=== PATIENT | male | born 1955 | race Two or more races ===

== ENCOUNTER 2017-06-22 09:21 | Outpatient (CLI) | payer MEDICAID ==
[~2017-06-22 09:21] MED LIST: DIAZ5TAB4 PO; ESCI20TA38 PO; FURO40TA4 PO; GABA-532 PO; INSU100V9 SQ; LINA5TAB4 PO; LISI-604 PO; METF500T4 PO; METO-539 PO; NITR0.4T48 PO; OMEP-50 PO; OXYB5TAB11 PO; OXYC10TA57 PO; POTA8CAP9 PO; ROPI4TAB4 PO; SIMV20TA5 PO; TAMS0.4C32 PO; TRAZ-143 PO; ZIPR40CA2 PO
[2017-06-22] MEDS ORDERED: mupirocin 2% ointment 22GM ONE (10:42)
== END 2017-06-22 10:59 | disposition home or self-care (01) ==
LOC: WOUND CARE 09:21 → EDSTATUS 10:00 → WOUND CARE 10:59
PROVIDERS: ATTEND Surgery
DX: T81.89XD Other complications of procedures, not elsewhere classified, subsequent encounter (principal); E11.621 Type 2 diabetes mellitus with foot ulcer; L97.521 Non-pressure chronic ulcer of other part of left foot limited to breakdown of skin; L97.421 Non-pressure chronic ulcer of left heel and midfoot limited to breakdown of skin; E11.52 Type 2 diabetes mellitus with diabetic peripheral angiopathy with gangrene; I70.244 Atherosclerosis of native arteries of left leg with ulceration of heel and midfoot; I70.245 Atherosclerosis of native arteries of left leg with ulceration of other part of foot; I42.9 Cardiomyopathy, unspecified; E11.22 Type 2 diabetes mellitus with diabetic chronic kidney disease; I13.0 Hypertensive heart and chronic kidney disease with heart failure and stage 1 through stage 4 chronic kidney disease, or unspecified chronic kidney disease; I50.33 Acute on chronic diastolic (congestive) heart failure; N18.3 Chronic kidney disease, stage 3 (moderate); E11.40 Type 2 diabetes mellitus with diabetic neuropathy, unspecified; I25.10 Atherosclerotic heart disease of native coronary artery without angina pectoris; K21.9 Gastro-esophageal reflux disease without esophagitis; F32.9 Major depressive disorder, single episode, unspecified; F17.210 Nicotine dependence, cigarettes, uncomplicated; Z79.4 Long term (current) use of insulin; Z79.899 Other long term (current) drug therapy; Z90.49 Acquired absence of other specified parts of digestive tract; Z85.038 Personal history of other malignant neoplasm of large intestine; Z85.048 Personal history of other malignant neoplasm of rectum, rectosigmoid junction, and anus; Y83.8 Other surgical procedures as the cause of abnormal reaction of the patient, or of later complication, without mention of misadventure at the time of the procedure
CPT/HCPCS: 36416; 82948; 99211; A4414; A6209; A6223

== ENCOUNTER 2017-06-27 09:30 | Day surgery (SDC) | payer MEDICAID ==
[2017-06-27] MEDS ORDERED: LIDOcaine 2% 5ml jelly ONE (10:48)
== END 2017-06-27 11:57 | disposition home or self-care (01) ==
LOC: WOUND CARE 09:30
PROVIDERS: ATTEND Surgery
DX: T87.89 Other complications of amputation stump (principal); E11.621 Type 2 diabetes mellitus with foot ulcer; L97.521 Non-pressure chronic ulcer of other part of left foot limited to breakdown of skin; E11.22 Type 2 diabetes mellitus with diabetic chronic kidney disease; I13.0 Hypertensive heart and chronic kidney disease with heart failure and stage 1 through stage 4 chronic kidney disease, or unspecified chronic kidney disease; I50.33 Acute on chronic diastolic (congestive) heart failure; N18.3 Chronic kidney disease, stage 3 (moderate); I25.10 Atherosclerotic heart disease of native coronary artery without angina pectoris; I70.244 Atherosclerosis of native arteries of left leg with ulceration of heel and midfoot; I70.245 Atherosclerosis of native arteries of left leg with ulceration of other part of foot; K21.9 Gastro-esophageal reflux disease without esophagitis; E11.40 Type 2 diabetes mellitus with diabetic neuropathy, unspecified; E11.52 Type 2 diabetes mellitus with diabetic peripheral angiopathy with gangrene; F32.9 Major depressive disorder, single episode, unspecified; F17.210 Nicotine dependence, cigarettes, uncomplicated; Z90.49 Acquired absence of other specified parts of digestive tract; Z79.4 Long term (current) use of insulin; Z79.899 Other long term (current) drug therapy; Z85.038 Personal history of other malignant neoplasm of large intestine; Z85.048 Personal history of other malignant neoplasm of rectum, rectosigmoid junction, and anus; Y83.5 Amputation of limb(s) as the cause of abnormal reaction of the patient, or of later complication, without mention of misadventure at the time of the procedure
CPT/HCPCS: 11043; 36416; 82948; 87070; 87075; 87077; 87102; 87186; A6021; A6206; A6209; A6223; A6446

== ENCOUNTER 2017-07-04 11:38 | Inpatient (IN) | payer MEDICAID ==
[~2017-07-04] VITALS: Ht 180.3 cm; Wt 82.7 kg
[~2017-07-04 11:38] MED LIST changes: +LIDOcaine 2% 5ml jelly ONE
[2017-07-04] MEDS ORDERED: glucagon, human recombinant 1mg kit SUBCUT PRN (12:55)
[2017-07-04] MEDS ORDERED: dextrose 50%-water 50ml dispensing syringe IV PRN ×2 (12:55)
[2017-07-04] MEDS ORDERED: magnesium hydroxide 30ml (MOM) UD suspension PO PRN (12:55)
[2017-07-04] MEDS ORDERED: mag hydrox/Alum hydrox/simeth 30ml oral suspension PO PRN (12:55)
[2017-07-04] MEDS ORDERED: magnesium 4gm in 100ml NS 100 ML IV PRN (12:55)
[2017-07-04] MEDS ORDERED: magnesium Cl slow-release 64mg tablet PO PRN (12:55)
[2017-07-04] MEDS ORDERED: potassium Cl 40MEQ/NS 500ml 500 ML IV PRN ×2 (12:55)
[2017-07-04] MEDS ORDERED: acetaminophen 325mg tablet PO PRN ×2 (12:55)
[2017-07-04] MEDS ORDERED: HYDROcodone/acetaminophen 5mg/325mg tablet PO PRN (12:55)
[2017-07-04] MEDS ORDERED: magnesium 2GM in 50ml NS 50 ML IV PRN (12:55)
[2017-07-04] MEDS ORDERED: dextrose ORAL solution 15 GM/59 ML bottle PO PRN ×2 (12:55)
[2017-07-04] MEDS ORDERED: potassium Cl 20 mEq SR tablet PO PRN ×2 (12:55)
[2017-07-04] MEDS ORDERED: ondansetron/PF 4mg/2ml inj IV PRN (12:55)
[2017-07-04] MEDS ORDERED: MESSAGE TO PHARMACY PO ONE (12:55)
[2017-07-04 13:00] VITALS: BP 128/65
[2017-07-04 13:46] LABS: BASOPHILS % (AUTO) 0 % (0-1); EOSINOPHILS # (AUTO) 0.1 X10'3 (0-0.9); EOSINOPHILS % (AUTO) 0.9 % (0-6); HEMATOCRIT 38.1 % (42.0-52.0); HEMOGLOBIN 12.4 g/dl (14.0-17.9); LYMPHOCYTES # (AUTO) 0.9 X10'3 (1.1-4.8); LYMPHOCYTES % (AUTO) 8.1 % (21-51); MEAN CORPUSCULAR HEMOGLOBIN 27.9 PG (27.0-31.0); MEAN CORPUSCULAR HGB CONC 32.6 % (33.0-36.5); MEAN CORPUSCULAR VOLUME 85.8 FL (78-98); MEAN PLATELET VOLUME 7.2 FL (7.4-10.4); MONOCYTES # (AUTO) 0.5 X10'3 (0-0.9); MONOCYTES % (AUTO) 4.9 % (2-12); NEUTROPHILS # (AUTO) 9.7 X10'3 (1.8-7.7); NEUTROPHILS % (AUTO) 86.1 % (42-75); PLATELET COUNT 394 X10'3 (140-440); RED BLOOD COUNT 4.44 X10'6 (4.70-6.10); RED CELL DISTRIBUTION WIDTH 17.1 % (11.5-14.5); WHITE BLOOD COUNT 11.2 X10'3 (4.5-11.0)
[2017-07-04 13:54] LABS: INR 1.1 INR; PARTIAL THROMBOPLASTIN TIME 25 SECONDS (22-32); PROTHROMBIN TIME 10.9 SECONDS (9.0-12.0)
[2017-07-04 13:58] LABS: ALANINE AMINOTRANSFERASE 21 U/L (12-78); ALBUMIN 2.2 G/DL (3.4-5.0); ALBUMIN/GLOBULIN RATIO 0.4 (1.1-1.5); ALKALINE PHOSPHATASE 122 IU/L (46-116); ANION GAP 6 (8-16); ASPARTATE AMINO TRANSFERASE 16 U/L (10-37); BILIRUBIN,TOTAL 0.4 MG/DL (0.1-1.0); BLOOD UREA NITROGEN 25 MG/DL (7-18); CHLORIDE 100 MMOL/L (99-107); CREATININE 1.25 MG/DL (0.60-1.10); GLUCOSE 210 MG/DL (70-104); MAGNESIUM 1.8 MG/DL (1.5-2.4); PHOSPHORUS 4.1 MG/DL (2.3-4.5); POTASSIUM 4.2 MMOL/L (3.5-5.1); SODIUM 134 MMOL/L (135-145); TOTAL CARBON DIOXIDE 27.7 MMOL/L (24-32); TOTAL PROTEIN 8.2 G/DL (6.4-8.2); eGFR 58 ML/MIN
[2017-07-04 14:11] LABS: HEMOGLOBIN A1C 9.3 % (4.5-6.2)
[2017-07-04] MEDS: HYDROmorphone 1 mg/ml syringe IV PRN ×2 (15:12→19:43)
[2017-07-04] MEDS: normal saline 1000ml 1,000 ML IV SCH (15:13)
[2017-07-04] MEDS: cefazolin 1gm/NS 100mL 100 ML IV SCH (15:13)
[2017-07-04] MEDS ORDERED: nitroGLYCERIN 0.4mg SUBLingual tab SL PRN (17:40)
[2017-07-04] MEDS: HYDROcodone/acetaminophen 10/325mg tab PO PRN (17:52)
[2017-07-04 19:30] VITALS: BP 124/69
[2017-07-04] MEDS: pantoprazole 40mg Tablet.DR PO SCH (19:45)
[2017-07-04] MEDS: oxybutynin 5mg tablet PO SCH (19:45)
[2017-07-04] MEDS: diazepam 5mg tablet PO SCH (19:51)
[2017-07-04] MEDS: heparin, porcine 5000 units/ml vial SQ SCH (19:53)
[2017-07-04] MEDS: oxyCODONE SR 10mg (sust. release) tab PO SCH (19:54)
[2017-07-04] MEDS ORDERED: non-formulary drug (Omeprazole 1 CAP) PO SCH (20:00)
[2017-07-04] MEDS ORDERED: SIMVASTATIN PO SCH (21:00)
[2017-07-04] MEDS ORDERED: temazepam 15mg capsule PO PRN (21:00)
[2017-07-04] MEDS ORDERED: ROPINIROLE HCL PO SCH (21:00)
[2017-07-04] MEDS: traZODone 50mg tablet PO SCH (21:18)
[2017-07-04] MEDS: gabapentin 300mg capsule PO SCH (21:18)
[2017-07-04] MEDS: atorvastatin 20mg tablet PO SCH (21:18)
[2017-07-04] MEDS: ROPINIRole 1mg tablet PO SCH (21:20)
[2017-07-04] MEDS: Insulin Detemir pen SQ SCH (21:28)
[2017-07-04] MEDS ORDERED: SPIR1TAB4 PO (22:03)
[2017-07-05] VITALS (24 sets, daily range): BP systolic 100–127; BP diastolic 50–89
[2017-07-05] MEDS: cefazolin 1gm/NS 100mL 100 ML IV SCH ×3 (01:41→15:32)
[2017-07-05] MEDS: HYDROmorphone 1 mg/ml syringe IV PRN ×4 (01:44→23:01)
[2017-07-05] MEDS: oxyCODONE SR 10mg (sust. release) tab PO SCH ×4 (01:49→19:57)
[2017-07-05] MEDS: normal saline 1000ml 1,000 ML IV SCH ×3 (05:13→22:05)
[2017-07-05 06:07] LABS: BASOPHILS % (AUTO) 0.3 % (0-1); EOSINOPHILS # (AUTO) 0.3 X10'3 (0-0.9); EOSINOPHILS % (AUTO) 3.7 % (0-6); HEMATOCRIT 32.7 % (42.0-52.0); HEMOGLOBIN 10.9 g/dl (14.0-17.9); LYMPHOCYTES # (AUTO) 1.3 X10'3 (1.1-4.8); LYMPHOCYTES % (AUTO) 14.6 % (21-51); MEAN CORPUSCULAR HEMOGLOBIN 28.6 PG (27.0-31.0); MEAN CORPUSCULAR HGB CONC 33.2 % (33.0-36.5); MEAN CORPUSCULAR VOLUME 86.1 FL (78-98); MEAN PLATELET VOLUME 7.1 FL (7.4-10.4); MONOCYTES # (AUTO) 0.9 X10'3 (0-0.9); MONOCYTES % (AUTO) 9.6 % (2-12); NEUTROPHILS # (AUTO) 6.4 X10'3 (1.8-7.7); NEUTROPHILS % (AUTO) 71.8 % (42-75); PLATELET COUNT 359 X10'3 (140-440); WHITE BLOOD COUNT 8.9 X10'3 (4.5-11.0)
[2017-07-05 06:22] LABS: PARTIAL THROMBOPLASTIN TIME 29 SECONDS (22-32); PROTHROMBIN TIME 10.8 SECONDS (9.0-12.0)
[2017-07-05 06:29] LABS: ALBUMIN 1.9 G/DL (3.4-5.0); ANION GAP 6 (8-16); BILIRUBIN,TOTAL 0.3 MG/DL (0.1-1.0); BLOOD UREA NITROGEN 24 MG/DL (7-18); BUN/CREATININE RATIO 17.8 (5.4-32.0); CALCIUM 8.4 MG/DL (8.5-10.1); CHLORIDE 102 MMOL/L (99-107); CREATININE 1.35 MG/DL (0.60-1.10); GLUCOSE 153 MG/DL (70-104); MAGNESIUM 1.9 MG/DL (1.5-2.4); POTASSIUM 3.9 MMOL/L (3.5-5.1); SODIUM 137 MMOL/L (135-145); TOTAL CARBON DIOXIDE 29.4 MMOL/L (24-32); TOTAL PROTEIN 7.1 G/DL (6.4-8.2); eGFR 53 ML/MIN
[2017-07-05 06:30] LABS: ALANINE AMINOTRANSFERASE 19 U/L (12-78); ALBUMIN/GLOBULIN RATIO 0.4 (1.1-1.5); ALKALINE PHOSPHATASE 103 IU/L (46-116); ASPARTATE AMINO TRANSFERASE 16 U/L (10-37); CHOL/HDL RATIO 2.5 (0.00-4.99); CHOLESTEROL 89 MG/DL (0-200); HDL CHOLESTEROL 35 MG/DL (35-60); LDL CHOLESTEROL 45 MG/DL (50-100); TRIGLYCERIDES 80 MG/DL (20-135)
[2017-07-05] MEDS: heparin, porcine 5000 units/ml vial SQ SCH ×2 (07:02→22:08)
[2017-07-05] MEDS: K and/or MAG REPLACEMENT MC SCH (07:02)
[2017-07-05] MEDS: pantoprazole 40mg Tablet.DR PO SCH ×2 (07:37→19:56)
[2017-07-05] MEDS: citalopram 20mg tablet PO SCH (07:37)
[2017-07-05] MEDS: potassium chloride 8mEq ER tablet PO SCH (07:37)
[2017-07-05] MEDS: tamsulosin 0.4mg capsule PO SCH (07:43)
[2017-07-05] MEDS: oxybutynin 5mg tablet PO SCH ×2 (07:43→19:56)
[2017-07-05] MEDS: lisinopril 2.5mg tablet PO SCH (07:51)
[2017-07-05] MEDS: linagliptin 5mg tablet PO SCH (07:51)
[2017-07-05] MEDS: diazepam 5mg tablet PO SCH ×2 (07:52→19:57)
[2017-07-05] MEDS ORDERED: ZIPRASIDONE HCL 40 MG PO SCH (08:00)
[2017-07-05] MEDS ORDERED: Insulin Detemir pen SQ SCH (08:00)
[2017-07-05] MEDS ORDERED: POTASSIUM CHLORIDE 8 MEQ PO SCH (08:00)
[2017-07-05] MEDS ORDERED: ziprasidone 20mg capsule PO SCH (08:00)
[2017-07-05] MEDS ORDERED: escitalopram 20mg tablet PO SCH (08:00)
[2017-07-05] MEDS ORDERED: INSULIN GLARGINE HUM REC ANLOG 15 UNIT SQ SCH (08:00)
[2017-07-05] MEDS: insulin Lispro (HumaLOG) vial - multi-dose SQ SCH (08:17)
[2017-07-05 09:48] LABS: CLARITY,URINE Clear (Clear); COLOR,URINE Yellow (Yellow); GLUCOSE, URINE Negative (Neg); KETONES,URINE Negative (Neg); LEUKOCYTE ESTERASE ,URINE Negative (Neg); NITRITES, URINE Negative (Neg); OCCULT BLOOD,URINE Negative (Neg); PH,URINE 6.5 (4.8-8.0); PROTEIN,URINE 100 mg/dl (Neg)
[2017-07-05 09:51] LABS: UA COLLECTION TYPE NON-SPECIFIED
[2017-07-05] MEDS: metoprolol succinate 25mg (24-HOUR) SR. Tablet PO SCH (09:57)
[2017-07-05 10:01] LABS: BACTERIA,URINE FEW /HPF (Neg); RBC,URINE 0-2 /HPF (0-2)
[2017-07-05 10:02] LABS: SQUAMOUS EPITHELIAL CELL,UR FEW /LPF (FEW); WBC,URINE 0-4 /HPF (0-4)
[2017-07-05] MEDS ORDERED: AMPI500C11 (11:08)
[2017-07-05] MEDS ORDERED: fentaNYL/PF 50MCG/1 ML 2ML syringe ONE (12:18)
[2017-07-05] MEDS ORDERED: midazolam 2 mg/2 ml injection ONE (12:19)
[2017-07-05] MEDS ORDERED: ceFAZolin 1000mg inj ONE ×2 (12:41)
[2017-07-05] MEDS ORDERED: ringers solution, lacted 1,000 ML IV SCH (12:50)
[2017-07-05] MEDS ORDERED: meperidine/PF 25mg/ml syringe IV PRN ×3 (12:50)
[2017-07-05] MEDS ORDERED: morphine 2 MG/ML inj. syringe IV PRN ×2 (12:50)
[2017-07-05] MEDS ORDERED: proCHLORperazine 10 MG/2 ml inj IV PRN (12:50)
[2017-07-05] MEDS ORDERED: ondansetron/PF 4mg/2ml inj IV PRN (12:50)
[2017-07-05] MEDS: ROPINIRole 1mg tablet PO SCH (19:54)
[2017-07-05] MEDS: ziprasidone 20mg capsule PO SCH (19:56)
[2017-07-05] MEDS: gabapentin 300mg capsule PO SCH (19:56)
[2017-07-05] MEDS: traZODone 50mg tablet PO SCH (19:57)
[2017-07-05] MEDS: atorvastatin 20mg tablet PO SCH (22:07)
[2017-07-05] MEDS: Insulin Detemir pen SQ SCH (22:20)
[2017-07-06] VITALS: BP 149/76
[2017-07-06] MEDS: cefazolin 1gm/NS 100mL 100 ML IV SCH ×4 (00:33→23:23)
[2017-07-06] MEDS: oxyCODONE SR 10mg (sust. release) tab PO SCH ×4 (02:12→21:03)
[2017-07-06] MEDS: HYDROmorphone 1 mg/ml syringe IV PRN ×2 (03:53→08:13)
[2017-07-06 06:18] LABS: BASOPHILS % (AUTO) 0.4 % (0-1); EOSINOPHILS # (AUTO) 0.2 X10'3 (0-0.9); EOSINOPHILS % (AUTO) 2.1 % (0-6); HEMATOCRIT 31.8 % (42.0-52.0); HEMOGLOBIN 10.4 g/dl (14.0-17.9); LYMPHOCYTES # (AUTO) 0.9 X10'3 (1.1-4.8); LYMPHOCYTES % (AUTO) 10.1 % (21-51); MEAN CORPUSCULAR HEMOGLOBIN 28.4 PG (27.0-31.0); MEAN CORPUSCULAR HGB CONC 32.8 % (33.0-36.5); MEAN CORPUSCULAR VOLUME 86.6 FL (78-98); MEAN PLATELET VOLUME 7.2 FL (7.4-10.4); MONOCYTES # (AUTO) 0.8 X10'3 (0-0.9); MONOCYTES % (AUTO) 8.5 % (2-12); NEUTROPHILS # (AUTO) 7.1 X10'3 (1.8-7.7); NEUTROPHILS % (AUTO) 78.9 % (42-75); PLATELET COUNT 375 X10'3 (140-440); RED BLOOD COUNT 3.67 X10'6 (4.70-6.10); RED CELL DISTRIBUTION WIDTH 17.3 % (11.5-14.5); WHITE BLOOD COUNT 9.1 X10'3 (4.5-11.0)
[2017-07-06 06:21] LABS: PARTIAL THROMBOPLASTIN TIME 28 SECONDS (22-32); PROTHROMBIN TIME 10.7 SECONDS (9.0-12.0)
[2017-07-06 06:35] LABS: ALANINE AMINOTRANSFERASE 20 U/L (12-78); ALBUMIN/GLOBULIN RATIO 0.4 (1.1-1.5); ALKALINE PHOSPHATASE 105 IU/L (46-116); ANION GAP 4 (8-16); ASPARTATE AMINO TRANSFERASE 29 U/L (10-37); BILIRUBIN,TOTAL 0.3 MG/DL (0.1-1.0); BLOOD UREA NITROGEN 19 MG/DL (7-18); BUN/CREATININE RATIO 15.8 (5.4-32.0); CALCIUM 8.3 MG/DL (8.5-10.1); CHLORIDE 103 MMOL/L (99-107); GLUCOSE 150 MG/DL (70-104); MAGNESIUM 1.8 MG/DL (1.5-2.4); POTASSIUM 3.9 MMOL/L (3.5-5.1); SODIUM 135 MMOL/L (135-145); TOTAL CARBON DIOXIDE 27.8 MMOL/L (24-32); TOTAL PROTEIN 6.9 G/DL (6.4-8.2); eGFR 61 ML/MIN
[2017-07-06 07:14] VITALS: BP 127/70
[2017-07-06] MEDS: K and/or MAG REPLACEMENT MC SCH (08:00)
[2017-07-06] MEDS: linagliptin 5mg tablet PO SCH (08:14)
[2017-07-06] MEDS: citalopram 20mg tablet PO SCH (08:14)
[2017-07-06] MEDS: potassium chloride 8mEq ER tablet PO SCH (08:14)
[2017-07-06] MEDS: pantoprazole 40mg Tablet.DR PO SCH ×2 (08:14→21:02)
[2017-07-06] MEDS: oxybutynin 5mg tablet PO SCH ×2 (08:14→21:03)
[2017-07-06] MEDS: diazepam 5mg tablet PO SCH ×2 (08:14→21:02)
[2017-07-06] MEDS: metoprolol succinate 25mg (24-HOUR) SR. Tablet PO SCH (08:14)
[2017-07-06] MEDS: LACTOBACILLUS RHAMNOSUS GG 15 billion unit sprinkle caps PO SCH (08:14)
[2017-07-06] MEDS: tamsulosin 0.4mg capsule PO SCH (08:14)
[2017-07-06] MEDS: heparin, porcine 5000 units/ml vial SQ SCH ×2 (08:15→20:59)
[2017-07-06] MEDS: lisinopril 2.5mg tablet PO SCH (08:15)
[2017-07-06] MEDS: insulin Lispro (HumaLOG) vial - multi-dose SQ SCH ×3 (09:19→19:26)
[2017-07-06 11:36] VITALS: BP 125/71
[2017-07-06] MEDS: aspirin 81mg tablet.DR PO SCH (13:41)
[2017-07-06 14:41] LABS: ABG BASE EXCESS -1.4 mmol/L (-2.0-3.0); ABG HCO3 21.1 mmol/L (22.0-26.0); ABG OXYGEN SATURATION 95.8 % (95-98); ABG PCO2 (T) 28.4 mmHg (35.0-48.0); ABG PH (T) 7.488 (7.350-7.450); ABG PO2 (T) 75.3 mmHg (83-108); ALLEN'S TEST Positive; FCOHb 0.1 % (0.5-1.5); FMetHb 0.3 % (0.3-1.12); FO2Hb 95.4 % (94-100)
[2017-07-06] MEDS: normal saline 1000ml 1,000 ML IV SCH (15:22)
[2017-07-06] MEDS ORDERED: acetaminophen 325mg tablet PO PRN (15:50)
[2017-07-06 20:00] VITALS: BP 129/66
[2017-07-06] MEDS: ziprasidone 20mg capsule PO SCH (21:01)
[2017-07-06] MEDS: gabapentin 300mg capsule PO SCH (21:02)
[2017-07-06] MEDS: atorvastatin 20mg tablet PO SCH (21:03)
[2017-07-06] MEDS: traZODone 50mg tablet PO SCH (21:03)
[2017-07-06] MEDS: ROPINIRole 1mg tablet PO SCH (21:04)
[2017-07-06] MEDS: Insulin Detemir pen SQ SCH (21:14)
[2017-07-06] MEDS: HYDROcodone/acetaminophen 10/325mg tab PO PRN (23:22)
[2017-07-07] VITALS: BP 136/70
[2017-07-07] MEDS: oxyCODONE SR 10mg (sust. release) tab PO SCH ×4 (02:33→20:52)
[2017-07-07 06:06] LABS: BASOPHILS # (AUTO) 0.1 X10'3 (0-0.2); BASOPHILS % (AUTO) 1.1 % (0-1); EOSINOPHILS # (AUTO) 0.1 X10'3 (0-0.9); EOSINOPHILS % (AUTO) 0.6 % (0-6); HEMATOCRIT 31.9 % (42.0-52.0); HEMOGLOBIN 10.4 g/dl (14.0-17.9); LYMPHOCYTES # (AUTO) 0.9 X10'3 (1.1-4.8); LYMPHOCYTES % (AUTO) 7.3 % (21-51); MEAN CORPUSCULAR HEMOGLOBIN 28.2 PG (27.0-31.0); MEAN CORPUSCULAR HGB CONC 32.7 % (33.0-36.5); MEAN CORPUSCULAR VOLUME 86.4 FL (78-98); MEAN PLATELET VOLUME 7.2 FL (7.4-10.4); MONOCYTES # (AUTO) 1.3 X10'3 (0-0.9); MONOCYTES % (AUTO) 10.7 % (2-12); NEUTROPHILS # (AUTO) 9.5 X10'3 (1.8-7.7); NEUTROPHILS % (AUTO) 80.3 % (42-75); PLATELET COUNT 363 X10'3 (140-440); RED BLOOD COUNT 3.68 X10'6 (4.70-6.10); WHITE BLOOD COUNT 11.8 X10'3 (4.5-11.0)
[2017-07-07 06:24] LABS: INR 1.1 INR; PARTIAL THROMBOPLASTIN TIME 29 SECONDS (22-32); PROTHROMBIN TIME 11.1 SECONDS (9.0-12.0)
[2017-07-07 06:25] LABS: ALANINE AMINOTRANSFERASE 20 U/L (12-78); ALBUMIN 2.1 G/DL (3.4-5.0); ALBUMIN/GLOBULIN RATIO 0.4 (1.1-1.5); ALKALINE PHOSPHATASE 106 IU/L (46-116); ANION GAP 5 (8-16); ASPARTATE AMINO TRANSFERASE 46 U/L (10-37); BILIRUBIN,TOTAL 0.4 MG/DL (0.1-1.0); BLOOD UREA NITROGEN 17 MG/DL (7-18); BUN/CREATININE RATIO 15.5 (5.4-32.0); CALCIUM 8.9 MG/DL (8.5-10.1); CHLORIDE 104 MMOL/L (99-107); GLUCOSE 104 MG/DL (70-104); MAGNESIUM 1.8 MG/DL (1.5-2.4); POTASSIUM 3.6 MMOL/L (3.5-5.1); SODIUM 138 MMOL/L (135-145); TOTAL CARBON DIOXIDE 28.6 MMOL/L (24-32); TOTAL PROTEIN 7.4 G/DL (6.4-8.2); eGFR 67 ML/MIN
[2017-07-07 07:05] VITALS: BP 128/66
[2017-07-07] MEDS: cefazolin 1gm/NS 100mL 100 ML IV SCH ×3 (07:41→23:59)
[2017-07-07] MEDS: normal saline 1000ml 1,000 ML IV SCH ×2 (07:42→22:49)
[2017-07-07] MEDS: tamsulosin 0.4mg capsule PO SCH (07:42)
[2017-07-07] MEDS: pantoprazole 40mg Tablet.DR PO SCH ×2 (07:42→20:53)
[2017-07-07] MEDS: metoprolol succinate 25mg (24-HOUR) SR. Tablet PO SCH (07:42)
[2017-07-07] MEDS: lisinopril 2.5mg tablet PO SCH (07:42)
[2017-07-07] MEDS: potassium chloride 8mEq ER tablet PO SCH (07:42)
[2017-07-07] MEDS: linagliptin 5mg tablet PO SCH (07:42)
[2017-07-07] MEDS: citalopram 20mg tablet PO SCH (07:43)
[2017-07-07] MEDS: LACTOBACILLUS RHAMNOSUS GG 15 billion unit sprinkle caps PO SCH (07:43)
[2017-07-07] MEDS: oxybutynin 5mg tablet PO SCH ×2 (07:43→20:53)
[2017-07-07] MEDS: aspirin 81mg tablet.DR PO SCH (07:43)
[2017-07-07] MEDS: heparin, porcine 5000 units/ml vial SQ SCH ×2 (07:43→20:50)
[2017-07-07] MEDS: diazepam 5mg tablet PO SCH ×2 (07:44→20:53)
[2017-07-07] MEDS: K and/or MAG REPLACEMENT MC SCH (08:00)
[2017-07-07] MEDS: insulin Lispro (HumaLOG) vial - multi-dose SQ SCH ×3 (10:09→19:06)
[2017-07-07 11:00] VITALS: BP 121/66
[2017-07-07] MEDS: HYDROmorphone 1 mg/ml syringe IV PRN (16:47)
[2017-07-07 20:00] VITALS: BP 124/69
[2017-07-07] MEDS: atorvastatin 20mg tablet PO SCH (20:52)
[2017-07-07] MEDS: ziprasidone 20mg capsule PO SCH (20:52)
[2017-07-07] MEDS: traZODone 50mg tablet PO SCH (20:53)
[2017-07-07] MEDS: gabapentin 300mg capsule PO SCH (20:53)
[2017-07-07] MEDS: ROPINIRole 1mg tablet PO SCH (20:53)
[2017-07-07] MEDS: Insulin Detemir pen SQ SCH (21:08)
[2017-07-08] VITALS: BP 127/77
[2017-07-08] MEDS: oxyCODONE SR 10mg (sust. release) tab PO SCH ×4 (03:29→20:08)
[2017-07-08 06:35] LABS: INR 1.1 INR
[2017-07-08 07:09] LABS: ALANINE AMINOTRANSFERASE 19 U/L (12-78); ALBUMIN 1.8 G/DL (3.4-5.0); ALBUMIN/GLOBULIN RATIO 0.4 (1.1-1.5); ALKALINE PHOSPHATASE 91 IU/L (46-116); ANION GAP 8 (8-16); ASPARTATE AMINO TRANSFERASE 41 U/L (10-37); BILIRUBIN,TOTAL 0.3 MG/DL (0.1-1.0); BLOOD UREA NITROGEN 16 MG/DL (7-18); BUN/CREATININE RATIO 13.3 (5.4-32.0); CALCIUM 8.3 MG/DL (8.5-10.1); CHLORIDE 106 MMOL/L (99-107); GLUCOSE 131 MG/DL (70-104); MAGNESIUM 1.9 MG/DL (1.5-2.4); SODIUM 140 MMOL/L (135-145); TOTAL CARBON DIOXIDE 25.8 MMOL/L (24-32); TOTAL PROTEIN 6.7 G/DL (6.4-8.2); eGFR 61 ML/MIN
[2017-07-08 07:23] LABS: BASOPHILS % (AUTO) 0.4 % (0-1); EOSINOPHILS # (AUTO) 0.3 X10'3 (0-0.9); EOSINOPHILS % (AUTO) 2.3 % (0-6); HEMATOCRIT 28.9 % (42.0-52.0); HEMOGLOBIN 10.1 g/dl (14.0-17.9); LYMPHOCYTES % (AUTO) 8.7 % (21-51); MEAN CORPUSCULAR HEMOGLOBIN 30.3 PG (27.0-31.0); MEAN CORPUSCULAR HGB CONC 34.8 % (33.0-36.5); MEAN PLATELET VOLUME 7.8 FL (7.4-10.4); MONOCYTES % (AUTO) 9.2 % (2-12); NEUTROPHILS # (AUTO) 8.7 X10'3 (1.8-7.7); NEUTROPHILS % (AUTO) 79.4 % (42-75); PLATELET COUNT 349 X10'3 (140-440); RED BLOOD COUNT 3.32 X10'6 (4.70-6.10); RED CELL DISTRIBUTION WIDTH 16.2 % (11.5-14.5)
[2017-07-08 08:00] VITALS: BP 135/74
[2017-07-08] MEDS: K and/or MAG REPLACEMENT MC SCH (08:00)
[2017-07-08] MEDS: diazepam 5mg tablet PO SCH ×2 (08:15→20:09)
[2017-07-08] MEDS: heparin, porcine 5000 units/ml vial SQ SCH ×2 (08:15→20:11)
[2017-07-08] MEDS: potassium chloride 8mEq ER tablet PO SCH (08:15)
[2017-07-08] MEDS: cefazolin 1gm/NS 100mL 100 ML IV SCH ×2 (08:15→15:37)
[2017-07-08] MEDS: linagliptin 5mg tablet PO SCH (08:16)
[2017-07-08] MEDS: aspirin 81mg tablet.DR PO SCH (08:16)
[2017-07-08] MEDS: lisinopril 2.5mg tablet PO SCH (08:16)
[2017-07-08] MEDS: citalopram 20mg tablet PO SCH (08:16)
[2017-07-08] MEDS: metoprolol succinate 25mg (24-HOUR) SR. Tablet PO SCH (08:16)
[2017-07-08] MEDS: LACTOBACILLUS RHAMNOSUS GG 15 billion unit sprinkle caps PO SCH (08:16)
[2017-07-08] MEDS: pantoprazole 40mg Tablet.DR PO SCH ×2 (08:16→20:09)
[2017-07-08] MEDS: oxybutynin 5mg tablet PO SCH ×2 (08:16→20:08)
[2017-07-08] MEDS: tamsulosin 0.4mg capsule PO SCH (08:16)
[2017-07-08 11:00] VITALS: BP 126/72
[2017-07-08] MEDS: insulin Lispro (HumaLOG) vial - multi-dose SQ SCH (13:19)
[2017-07-08] MEDS: normal saline 1000ml 1,000 ML IV SCH (14:35)
[2017-07-08] MEDS: HYDROmorphone 1 mg/ml syringe IV PRN (15:39)
[2017-07-08 20:00] VITALS: BP 121/67
[2017-07-08] MEDS: ROPINIRole 1mg tablet PO SCH (20:11)
[2017-07-08] MEDS: traZODone 50mg tablet PO SCH (20:12)
[2017-07-08] MEDS: ziprasidone 20mg capsule PO SCH (20:12)
[2017-07-08] MEDS: atorvastatin 20mg tablet PO SCH (20:12)
[2017-07-08] MEDS: gabapentin 300mg capsule PO SCH (20:12)
[2017-07-08] MEDS: Insulin Detemir pen SQ SCH (21:04)
[2017-07-09] VITALS: BP 129/73
[2017-07-09] MEDS: cefazolin 1gm/NS 100mL 100 ML IV SCH ×4 (01:26→23:44)
[2017-07-09] MEDS: oxyCODONE SR 10mg (sust. release) tab PO SCH ×4 (03:09→19:59)
[2017-07-09 06:09] LABS: BASOPHILS # (AUTO) 0.1 X10'3 (0-0.2); BASOPHILS % (AUTO) 0.7 % (0-1); EOSINOPHILS # (AUTO) 0.3 X10'3 (0-0.9); EOSINOPHILS % (AUTO) 3.1 % (0-6); HEMATOCRIT 28.1 % (42.0-52.0); HEMOGLOBIN 9.1 g/dl (14.0-17.9); MEAN CORPUSCULAR HEMOGLOBIN 27.9 PG (27.0-31.0); MEAN CORPUSCULAR HGB CONC 32.2 % (33.0-36.5); MEAN CORPUSCULAR VOLUME 86.5 FL (78-98); MEAN PLATELET VOLUME 7.1 FL (7.4-10.4); MONOCYTES # (AUTO) 0.8 X10'3 (0-0.9); NEUTROPHILS # (AUTO) 8.4 X10'3 (1.8-7.7); NEUTROPHILS % (AUTO) 79.2 % (42-75); PLATELET COUNT 331 X10'3 (140-440); RED BLOOD COUNT 3.25 X10'6 (4.70-6.10); RED CELL DISTRIBUTION WIDTH 17.6 % (11.5-14.5); WHITE BLOOD COUNT 10.7 X10'3 (4.5-11.0)
[2017-07-09 06:34] LABS: INR 1.1 INR
[2017-07-09 07:12] VITALS: BP 111/66
[2017-07-09 07:13] LABS: ALANINE AMINOTRANSFERASE 17 U/L (12-78); ALBUMIN 1.6 G/DL (3.4-5.0); ALBUMIN/GLOBULIN RATIO 0.3 (1.1-1.5); ALKALINE PHOSPHATASE 95 IU/L (46-116); ANION GAP 9 (8-16); ASPARTATE AMINO TRANSFERASE 36 U/L (10-37); BILIRUBIN,TOTAL 0.4 MG/DL (0.1-1.0); BLOOD UREA NITROGEN 17 MG/DL (7-18); BUN/CREATININE RATIO 13.1 (5.4-32.0); CHLORIDE 104 MMOL/L (99-107); GLUCOSE 202 MG/DL (70-104); MAGNESIUM 1.9 MG/DL (1.5-2.4); SODIUM 138 MMOL/L (135-145); TOTAL CARBON DIOXIDE 25.3 MMOL/L (24-32); TOTAL PROTEIN 6.2 G/DL (6.4-8.2); eGFR 56 ML/MIN
[2017-07-09] MEDS: normal saline 1000ml 1,000 ML IV SCH (07:37)
[2017-07-09] MEDS: linagliptin 5mg tablet PO SCH (07:39)
[2017-07-09] MEDS: citalopram 20mg tablet PO SCH (07:40)
[2017-07-09] MEDS: LACTOBACILLUS RHAMNOSUS GG 15 billion unit sprinkle caps PO SCH (07:40)
[2017-07-09] MEDS: metoprolol succinate 25mg (24-HOUR) SR. Tablet PO SCH (07:40)
[2017-07-09] MEDS: tamsulosin 0.4mg capsule PO SCH (07:40)
[2017-07-09] MEDS: oxybutynin 5mg tablet PO SCH ×2 (07:40→19:59)
[2017-07-09] MEDS: potassium chloride 8mEq ER tablet PO SCH (07:40)
[2017-07-09] MEDS: lisinopril 2.5mg tablet PO SCH (07:40)
[2017-07-09] MEDS: pantoprazole 40mg Tablet.DR PO SCH ×2 (07:40→19:59)
[2017-07-09] MEDS: aspirin 81mg tablet.DR PO SCH (07:40)
[2017-07-09] MEDS: diazepam 5mg tablet PO SCH ×2 (07:41→19:59)
[2017-07-09] MEDS: heparin, porcine 5000 units/ml vial SQ SCH ×2 (07:41→20:00)
[2017-07-09] MEDS: K and/or MAG REPLACEMENT MC SCH (07:47)
[2017-07-09] MEDS: insulin Lispro (HumaLOG) vial - multi-dose SQ SCH ×3 (08:20→19:13)
[2017-07-09 12:29] VITALS: BP 115/65
[2017-07-09 19:00] VITALS: BP 125/67
[2017-07-09] MEDS: ziprasidone 20mg capsule PO SCH (21:20)
[2017-07-09] MEDS: ROPINIRole 1mg tablet PO SCH (21:21)
[2017-07-09] MEDS: atorvastatin 20mg tablet PO SCH (21:21)
[2017-07-09] MEDS: gabapentin 300mg capsule PO SCH (21:21)
[2017-07-09] MEDS: traZODone 50mg tablet PO SCH (21:21)
[2017-07-09] MEDS: Insulin Detemir pen SQ SCH (21:29)
[2017-07-09] MEDS: HYDROcodone/acetaminophen 10/325mg tab PO PRN (22:44)
[2017-07-10] VITALS: BP 112/65
[2017-07-10] MEDS: oxyCODONE SR 10mg (sust. release) tab PO SCH ×4 (01:35→20:01)
[2017-07-10] MEDS: HYDROcodone/acetaminophen 10/325mg tab PO PRN ×2 (05:16→23:14)
[2017-07-10] MEDS: K and/or MAG REPLACEMENT MC SCH (06:51)
[2017-07-10 07:00] VITALS: BP 114/58
[2017-07-10] MEDS: cefazolin 1gm/NS 100mL 100 ML IV SCH ×3 (08:47→23:50)
[2017-07-10] MEDS: citalopram 20mg tablet PO SCH (08:48)
[2017-07-10] MEDS: diazepam 5mg tablet PO SCH ×2 (08:48→20:01)
[2017-07-10] MEDS: LACTOBACILLUS RHAMNOSUS GG 15 billion unit sprinkle caps PO SCH (08:48)
[2017-07-10] MEDS: tamsulosin 0.4mg capsule PO SCH (08:51)
[2017-07-10] MEDS: potassium chloride 8mEq ER tablet PO SCH (08:51)
[2017-07-10] MEDS: aspirin 81mg tablet.DR PO SCH (08:51)
[2017-07-10] MEDS: metoprolol succinate 25mg (24-HOUR) SR. Tablet PO SCH (08:51)
[2017-07-10] MEDS: linagliptin 5mg tablet PO SCH (08:51)
[2017-07-10] MEDS: pantoprazole 40mg Tablet.DR PO SCH ×2 (08:51→20:01)
[2017-07-10] MEDS: lisinopril 2.5mg tablet PO SCH (08:51)
[2017-07-10] MEDS: oxybutynin 5mg tablet PO SCH ×2 (08:51→20:01)
[2017-07-10] MEDS: heparin, porcine 5000 units/ml vial SQ SCH ×2 (08:53→20:02)
[2017-07-10] MEDS: insulin Lispro (HumaLOG) vial - multi-dose SQ SCH ×3 (09:00→19:00)
[2017-07-10 11:20] VITALS: BP 115/61
[2017-07-10 19:00] VITALS: BP 129/58
[2017-07-10] MEDS: atorvastatin 20mg tablet PO SCH (21:03)
[2017-07-10] MEDS: ziprasidone 20mg capsule PO SCH (21:03)
[2017-07-10] MEDS: gabapentin 300mg capsule PO SCH (21:03)
[2017-07-10] MEDS: traZODone 50mg tablet PO SCH (21:03)
[2017-07-10] MEDS: ROPINIRole 1mg tablet PO SCH (21:05)
[2017-07-10] MEDS: Insulin Detemir pen SQ SCH (21:28)
[2017-07-11] VITALS: BP 118/57
[2017-07-11] MEDS: oxyCODONE SR 10mg (sust. release) tab PO SCH ×3 (02:22→14:01)
[2017-07-11] MEDS: HYDROcodone/acetaminophen 10/325mg tab PO PRN ×2 (04:48→11:42)
[2017-07-11] MEDS: insulin Lispro (HumaLOG) vial - multi-dose SQ SCH ×2 (07:57→13:08)
[2017-07-11] MEDS: K and/or MAG REPLACEMENT MC SCH (08:00)
[2017-07-11] MEDS: lisinopril 2.5mg tablet PO SCH (08:00)
[2017-07-11] MEDS: metoprolol succinate 25mg (24-HOUR) SR. Tablet PO SCH (08:00)
[2017-07-11] MEDS: oxybutynin 5mg tablet PO SCH (08:02)
[2017-07-11] MEDS: LACTOBACILLUS RHAMNOSUS GG 15 billion unit sprinkle caps PO SCH (08:02)
[2017-07-11] MEDS: cefazolin 1gm/NS 100mL 100 ML IV SCH (08:03)
[2017-07-11] MEDS: citalopram 20mg tablet PO SCH (08:03)
[2017-07-11] MEDS: tamsulosin 0.4mg capsule PO SCH (08:04)
[2017-07-11] MEDS: potassium chloride 8mEq ER tablet PO SCH (08:04)
[2017-07-11] MEDS: aspirin 81mg tablet.DR PO SCH (08:04)
[2017-07-11] MEDS: pantoprazole 40mg Tablet.DR PO SCH (08:05)
[2017-07-11] MEDS: linagliptin 5mg tablet PO SCH (08:05)
[2017-07-11] MEDS: heparin, porcine 5000 units/ml vial SQ SCH (08:06)
[2017-07-11] MEDS: diazepam 5mg tablet PO SCH (08:06)
[2017-07-11 08:19] VITALS: BP 104/56
[2017-07-11 12:13] VITALS: BP 98/53
== END 2017-07-11 15:15 | DRG 305 ==
LOC: WOUND CARE 11:38 → MED 3N 11:40
PROVIDERS: ADMIT Family Medicine; ATTEND Internal Medicine
PROC: 0Y6J0Z1 Detachment at Left Lower Leg, High, Open Approach (ICD-10-PCS; principal; 2017-07-05 12:14)
DX: E11.52 Type 2 diabetes mellitus with diabetic peripheral angiopathy with gangrene (principal); E43 Unspecified severe protein-calorie malnutrition; G92 Toxic encephalopathy; E11.21 Type 2 diabetes mellitus with diabetic nephropathy; I13.0 Hypertensive heart and chronic kidney disease with heart failure and stage 1 through stage 4 chronic kidney disease, or unspecified chronic kidney disease; I50.9 Heart failure, unspecified; L03.116 Cellulitis of left lower limb; E11.42 Type 2 diabetes mellitus with diabetic polyneuropathy; D64.9 Anemia, unspecified; E11.22 Type 2 diabetes mellitus with diabetic chronic kidney disease; E87.1 Hypo-osmolality and hyponatremia; E78.5 Hyperlipidemia, unspecified; I25.10 Atherosclerotic heart disease of native coronary artery without angina pectoris; L97.529 Non-pressure chronic ulcer of other part of left foot with unspecified severity; N18.9 Chronic kidney disease, unspecified; Z60.2 Problems related to living alone; F32.9 Major depressive disorder, single episode, unspecified; Z95.0 Presence of cardiac pacemaker; Z68.25 Body mass index [BMI] 25.0-25.9, adult; Z88.6 Allergy status to analgesic agent; Z91.041 Radiographic dye allergy status; Z79.899 Other long term (current) drug therapy; Z79.01 Long term (current) use of anticoagulants; Z79.82 Long term (current) use of aspirin; Z85.038 Personal history of other malignant neoplasm of large intestine; Z89.512 Acquired absence of left leg below knee; Z90.49 Acquired absence of other specified parts of digestive tract; Z93.3 Colostomy status; Z79.84 Long term (current) use of oral hypoglycemic drugs
CPT/HCPCS: 36415; 36416; 36600; 70450; 71045; 80053; 80061; 81001; 82803; 82948; 83036; 83735; 84100; 85018; 85025; 85610; 85730; 87040; 87070; 93005; 93306; 93926; 97110; 97116; 97162; 97530; A4315; A4353; A6212; A6213; A6222; A6446; A6449; A7000; J0690; J1170; J1644; J2175; J2250; J3010; J7030; J7120

== ENCOUNTER 2017-07-18 09:42 | Outpatient (CLI) | payer MEDICAID ==
[~2017-07-18 09:42] MED LIST changes: +AMPI500C11; -LIDOcaine 2% 5ml jelly ONE; +SPIR1TAB4 PO
[2017-07-18] MEDS ORDERED: LIDOcaine 2% 5ml jelly ONE (11:15)
[2017-07-18] MEDS ORDERED: mupirocin 2% ointment 22GM ONE (11:53)
[2017-07-18] MEDS ORDERED: DOCU-28 PO (15:13)
[2017-07-18] MEDS ORDERED: PER10325T PO (15:13)
[2017-07-18] MEDS ORDERED: FLO0.4C PO (15:13)
[2017-07-18] MEDS ORDERED: LACT1CAP65 PO (15:13)
[2017-07-18] MEDS ORDERED: ROPI4TAB3 PO (15:13)
[2017-07-18] MEDS ORDERED: CITA40TA22 PO (15:13)
[2017-07-18] MEDS ORDERED: TEMA15CA PO (15:13)
[2017-07-18] MEDS ORDERED: ASPI81TA52 PO (15:13)
[2017-07-18] MEDS ORDERED: PRAV80TA3 PO (15:13)
[2017-07-18] MEDS ORDERED: MULT-673 PO (15:13)
[2017-07-18] MEDS ORDERED: FURO-150 PO (15:13)
[2017-07-18] MEDS ORDERED: INSU100C10 SQ (15:13)
== END 2017-07-18 12:15 | disposition home or self-care (01) ==
LOC: WOUND CARE 09:42 → EDSTATUS 10:00 → WOUND CARE 12:15
PROVIDERS: ATTEND Surgery
DX: T87.89 Other complications of amputation stump (principal); E11.621 Type 2 diabetes mellitus with foot ulcer; L97.521 Non-pressure chronic ulcer of other part of left foot limited to breakdown of skin; L97.421 Non-pressure chronic ulcer of left heel and midfoot limited to breakdown of skin; E11.22 Type 2 diabetes mellitus with diabetic chronic kidney disease; I13.0 Hypertensive heart and chronic kidney disease with heart failure and stage 1 through stage 4 chronic kidney disease, or unspecified chronic kidney disease; I50.33 Acute on chronic diastolic (congestive) heart failure; N18.3 Chronic kidney disease, stage 3 (moderate); I25.10 Atherosclerotic heart disease of native coronary artery without angina pectoris; I70.244 Atherosclerosis of native arteries of left leg with ulceration of heel and midfoot; I70.245 Atherosclerosis of native arteries of left leg with ulceration of other part of foot; K21.9 Gastro-esophageal reflux disease without esophagitis; E11.40 Type 2 diabetes mellitus with diabetic neuropathy, unspecified; E11.52 Type 2 diabetes mellitus with diabetic peripheral angiopathy with gangrene; F32.9 Major depressive disorder, single episode, unspecified; F17.210 Nicotine dependence, cigarettes, uncomplicated; Z90.49 Acquired absence of other specified parts of digestive tract; Z79.4 Long term (current) use of insulin; Z79.899 Other long term (current) drug therapy; Z85.038 Personal history of other malignant neoplasm of large intestine; Z85.048 Personal history of other malignant neoplasm of rectum, rectosigmoid junction, and anus; Y83.8 Other surgical procedures as the cause of abnormal reaction of the patient, or of later complication, without mention of misadventure at the time of the procedure
CPT/HCPCS: 36416; 82948; 99215; A6223; A6446

== ENCOUNTER 2017-07-25 09:55 | Outpatient (CLI) | payer MEDICAID ==
[~2017-07-25 09:55] MED LIST changes: -AMPI500C11; +ASPI81TA52 PO; +CITA40TA22 PO; -DIAZ5TAB4 PO; +DOCU-28 PO; -ESCI20TA38 PO; +FLO0.4C PO; +FURO-150 PO; -FURO40TA4 PO; +INSU100C10 SQ; +LACT1CAP65 PO; +MULT-673 PO; +PER10325T PO; +PRAV80TA3 PO; +ROPI4TAB3 PO; -ROPI4TAB4 PO; -SIMV20TA5 PO; -SPIR1TAB4 PO; -TAMS0.4C32 PO; +TEMA15CA PO
== END 2017-07-25 12:22 | disposition home or self-care (01) ==
LOC: WOUND CARE 09:55 → EDSTATUS 10:00 → WOUND CARE 12:22
PROVIDERS: ATTEND Surgery
DX: T87.89 Other complications of amputation stump (principal); E11.22 Type 2 diabetes mellitus with diabetic chronic kidney disease; I13.0 Hypertensive heart and chronic kidney disease with heart failure and stage 1 through stage 4 chronic kidney disease, or unspecified chronic kidney disease; N18.3 Chronic kidney disease, stage 3 (moderate); I50.23 Acute on chronic systolic (congestive) heart failure; I25.10 Atherosclerotic heart disease of native coronary artery without angina pectoris; K21.9 Gastro-esophageal reflux disease without esophagitis; E11.40 Type 2 diabetes mellitus with diabetic neuropathy, unspecified; E11.52 Type 2 diabetes mellitus with diabetic peripheral angiopathy with gangrene; E78.5 Hyperlipidemia, unspecified; E11.42 Type 2 diabetes mellitus with diabetic polyneuropathy; E11.21 Type 2 diabetes mellitus with diabetic nephropathy; F32.9 Major depressive disorder, single episode, unspecified; F17.210 Nicotine dependence, cigarettes, uncomplicated; Z90.49 Acquired absence of other specified parts of digestive tract; Z79.4 Long term (current) use of insulin; Z79.899 Other long term (current) drug therapy; Z85.038 Personal history of other malignant neoplasm of large intestine; Z85.048 Personal history of other malignant neoplasm of rectum, rectosigmoid junction, and anus; Z68.25 Body mass index [BMI] 25.0-25.9, adult; Z79.01 Long term (current) use of anticoagulants; Z79.82 Long term (current) use of aspirin; Z95.0 Presence of cardiac pacemaker; Y83.5 Amputation of limb(s) as the cause of abnormal reaction of the patient, or of later complication, without mention of misadventure at the time of the procedure
CPT/HCPCS: 82948; 99215; A6021; A6223; A6446

== ENCOUNTER 2017-08-01 09:48 | Outpatient (CLI) | payer MEDICAID | END 2017-08-01 11:54 | disposition home or self-care (01) | LOC: WOUND CARE 09:48 → EDSTATUS 10:00 → WOUND CARE 11:54 | PROVIDERS: ATTEND Surgery | DX: T87.89 Other complications of amputation stump (principal); E11.622 Type 2 diabetes mellitus with other skin ulcer; L97.821 Non-pressure chronic ulcer of other part of left lower leg limited to breakdown of skin; E11.22 Type 2 diabetes mellitus with diabetic chronic kidney disease; I13.0 Hypertensive heart and chronic kidney disease with heart failure and stage 1 through stage 4 chronic kidney disease, or unspecified chronic kidney disease; N18.3 Chronic kidney disease, stage 3 (moderate); I50.23 Acute on chronic systolic (congestive) heart failure; I25.10 Atherosclerotic heart disease of native coronary artery without angina pectoris; K21.9 Gastro-esophageal reflux disease without esophagitis; E11.40 Type 2 diabetes mellitus with diabetic neuropathy, unspecified; E11.52 Type 2 diabetes mellitus with diabetic peripheral angiopathy with gangrene; E78.5 Hyperlipidemia, unspecified; E11.42 Type 2 diabetes mellitus with diabetic polyneuropathy; E11.21 Type 2 diabetes mellitus with diabetic nephropathy; F32.9 Major depressive disorder, single episode, unspecified; F17.210 Nicotine dependence, cigarettes, uncomplicated; Z90.49 Acquired absence of other specified parts of digestive tract; Z79.4 Long term (current) use of insulin; Z79.899 Other long term (current) drug therapy; Z85.038 Personal history of other malignant neoplasm of large intestine; Z85.048 Personal history of other malignant neoplasm of rectum, rectosigmoid junction, and anus; Z68.25 Body mass index [BMI] 25.0-25.9, adult; Z79.01 Long term (current) use of anticoagulants; Z79.82 Long term (current) use of aspirin; Z95.0 Presence of cardiac pacemaker; Y83.5 Amputation of limb(s) as the cause of abnormal reaction of the patient, or of later complication, without mention of misadventure at the time of the procedure | CPT/HCPCS: 36416; 82948; 99215; A6021; A6223; A6446 ==

== ENCOUNTER 2017-08-08 09:56 | Outpatient (CLI) | payer MEDICAID | END 2017-08-08 11:25 | disposition home or self-care (01) | LOC: WOUND CARE 09:56 → EDSTATUS 10:00 → WOUND CARE 11:25 | PROVIDERS: ATTEND Surgery | DX: T87.89 Other complications of amputation stump (principal); E11.622 Type 2 diabetes mellitus with other skin ulcer; L97.821 Non-pressure chronic ulcer of other part of left lower leg limited to breakdown of skin; E11.22 Type 2 diabetes mellitus with diabetic chronic kidney disease; I13.0 Hypertensive heart and chronic kidney disease with heart failure and stage 1 through stage 4 chronic kidney disease, or unspecified chronic kidney disease; N18.3 Chronic kidney disease, stage 3 (moderate); I50.23 Acute on chronic systolic (congestive) heart failure; I25.10 Atherosclerotic heart disease of native coronary artery without angina pectoris; K21.9 Gastro-esophageal reflux disease without esophagitis; E11.40 Type 2 diabetes mellitus with diabetic neuropathy, unspecified; E11.52 Type 2 diabetes mellitus with diabetic peripheral angiopathy with gangrene; E78.5 Hyperlipidemia, unspecified; E11.42 Type 2 diabetes mellitus with diabetic polyneuropathy; E11.21 Type 2 diabetes mellitus with diabetic nephropathy; F32.9 Major depressive disorder, single episode, unspecified; F17.210 Nicotine dependence, cigarettes, uncomplicated; Z90.49 Acquired absence of other specified parts of digestive tract; Z79.4 Long term (current) use of insulin; Z79.899 Other long term (current) drug therapy; Z85.038 Personal history of other malignant neoplasm of large intestine; Z85.048 Personal history of other malignant neoplasm of rectum, rectosigmoid junction, and anus; Z68.25 Body mass index [BMI] 25.0-25.9, adult; Z79.01 Long term (current) use of anticoagulants; Z79.82 Long term (current) use of aspirin; Z95.0 Presence of cardiac pacemaker; Y83.5 Amputation of limb(s) as the cause of abnormal reaction of the patient, or of later complication, without mention of misadventure at the time of the procedure | CPT/HCPCS: 99215; A6021; A6213 ==

== ENCOUNTER 2017-08-15 09:53 | Day surgery (SDC) | payer MEDICAID ==
[2017-08-15] MEDS ORDERED: LIDOcaine 2% 5ml jelly ONE (10:29)
== END 2017-08-15 11:31 | disposition home or self-care (01) ==
LOC: WOUND CARE 09:53
PROVIDERS: ATTEND Surgery
DX: T87.89 Other complications of amputation stump (principal); E11.621 Type 2 diabetes mellitus with foot ulcer; L97.411 Non-pressure chronic ulcer of right heel and midfoot limited to breakdown of skin; E11.622 Type 2 diabetes mellitus with other skin ulcer; L97.821 Non-pressure chronic ulcer of other part of left lower leg limited to breakdown of skin; E11.22 Type 2 diabetes mellitus with diabetic chronic kidney disease; I13.0 Hypertensive heart and chronic kidney disease with heart failure and stage 1 through stage 4 chronic kidney disease, or unspecified chronic kidney disease; N18.3 Chronic kidney disease, stage 3 (moderate); I50.23 Acute on chronic systolic (congestive) heart failure; I25.10 Atherosclerotic heart disease of native coronary artery without angina pectoris; K21.9 Gastro-esophageal reflux disease without esophagitis; E11.40 Type 2 diabetes mellitus with diabetic neuropathy, unspecified; E11.52 Type 2 diabetes mellitus with diabetic peripheral angiopathy with gangrene; E78.5 Hyperlipidemia, unspecified; E11.42 Type 2 diabetes mellitus with diabetic polyneuropathy; E11.21 Type 2 diabetes mellitus with diabetic nephropathy; F32.9 Major depressive disorder, single episode, unspecified; F17.210 Nicotine dependence, cigarettes, uncomplicated; Z90.49 Acquired absence of other specified parts of digestive tract; Z79.4 Long term (current) use of insulin; Z79.899 Other long term (current) drug therapy; Z85.038 Personal history of other malignant neoplasm of large intestine; Z85.048 Personal history of other malignant neoplasm of rectum, rectosigmoid junction, and anus; Z68.25 Body mass index [BMI] 25.0-25.9, adult; Z79.01 Long term (current) use of anticoagulants; Z79.82 Long term (current) use of aspirin; Z95.0 Presence of cardiac pacemaker; Y83.5 Amputation of limb(s) as the cause of abnormal reaction of the patient, or of later complication, without mention of misadventure at the time of the procedure
CPT/HCPCS: 36416; 82948; 97597; A6021; A6206; A6212

== ENCOUNTER 2017-08-22 09:42 | Day surgery (SDC) | payer MEDICAID ==
[2017-08-22] MEDS ORDERED: LIDOcaine 2% 5ml jelly ONE ×2 (10:53→11:38)
== END 2017-08-22 12:32 | disposition home or self-care (01) ==
LOC: WOUND CARE 09:42
PROVIDERS: ATTEND Surgery
DX: T87.89 Other complications of amputation stump (principal); E11.621 Type 2 diabetes mellitus with foot ulcer; L97.411 Non-pressure chronic ulcer of right heel and midfoot limited to breakdown of skin; E11.622 Type 2 diabetes mellitus with other skin ulcer; L97.821 Non-pressure chronic ulcer of other part of left lower leg limited to breakdown of skin; E11.22 Type 2 diabetes mellitus with diabetic chronic kidney disease; I13.0 Hypertensive heart and chronic kidney disease with heart failure and stage 1 through stage 4 chronic kidney disease, or unspecified chronic kidney disease; N18.3 Chronic kidney disease, stage 3 (moderate); I50.23 Acute on chronic systolic (congestive) heart failure; I25.10 Atherosclerotic heart disease of native coronary artery without angina pectoris; K21.9 Gastro-esophageal reflux disease without esophagitis; E11.40 Type 2 diabetes mellitus with diabetic neuropathy, unspecified; E11.52 Type 2 diabetes mellitus with diabetic peripheral angiopathy with gangrene; E78.5 Hyperlipidemia, unspecified; E11.42 Type 2 diabetes mellitus with diabetic polyneuropathy; E11.21 Type 2 diabetes mellitus with diabetic nephropathy; F32.9 Major depressive disorder, single episode, unspecified; F17.210 Nicotine dependence, cigarettes, uncomplicated; Z90.49 Acquired absence of other specified parts of digestive tract; Z79.4 Long term (current) use of insulin; Z79.899 Other long term (current) drug therapy; Z85.038 Personal history of other malignant neoplasm of large intestine; Z85.048 Personal history of other malignant neoplasm of rectum, rectosigmoid junction, and anus; Z68.25 Body mass index [BMI] 25.0-25.9, adult; Z79.01 Long term (current) use of anticoagulants; Z79.82 Long term (current) use of aspirin; Z95.0 Presence of cardiac pacemaker; Y83.5 Amputation of limb(s) as the cause of abnormal reaction of the patient, or of later complication, without mention of misadventure at the time of the procedure
CPT/HCPCS: 11042; 36416; 82948; A6021; A6212

== ENCOUNTER 2017-08-29 09:47 | Day surgery (SDC) | payer MEDICAID ==
[2017-08-29] MEDS ORDERED: LIDOcaine 2% 5ml jelly ONE (11:04)
== END 2017-08-29 11:40 | disposition home or self-care (01) ==
LOC: WOUND CARE 09:47
PROVIDERS: ATTEND Surgery
DX: T87.89 Other complications of amputation stump (principal); E11.622 Type 2 diabetes mellitus with other skin ulcer; L97.821 Non-pressure chronic ulcer of other part of left lower leg limited to breakdown of skin; E11.22 Type 2 diabetes mellitus with diabetic chronic kidney disease; I13.0 Hypertensive heart and chronic kidney disease with heart failure and stage 1 through stage 4 chronic kidney disease, or unspecified chronic kidney disease; N18.3 Chronic kidney disease, stage 3 (moderate); I50.23 Acute on chronic systolic (congestive) heart failure; I25.10 Atherosclerotic heart disease of native coronary artery without angina pectoris; K21.9 Gastro-esophageal reflux disease without esophagitis; E11.40 Type 2 diabetes mellitus with diabetic neuropathy, unspecified; E11.52 Type 2 diabetes mellitus with diabetic peripheral angiopathy with gangrene; E78.5 Hyperlipidemia, unspecified; E11.42 Type 2 diabetes mellitus with diabetic polyneuropathy; E11.21 Type 2 diabetes mellitus with diabetic nephropathy; F32.9 Major depressive disorder, single episode, unspecified; F17.210 Nicotine dependence, cigarettes, uncomplicated; Z90.49 Acquired absence of other specified parts of digestive tract; Z79.4 Long term (current) use of insulin; Z79.899 Other long term (current) drug therapy; Z85.038 Personal history of other malignant neoplasm of large intestine; Z85.048 Personal history of other malignant neoplasm of rectum, rectosigmoid junction, and anus; Z68.25 Body mass index [BMI] 25.0-25.9, adult; Z79.01 Long term (current) use of anticoagulants; Z79.82 Long term (current) use of aspirin; Z95.0 Presence of cardiac pacemaker; Y83.5 Amputation of limb(s) as the cause of abnormal reaction of the patient, or of later complication, without mention of misadventure at the time of the procedure
CPT/HCPCS: 15271; A6196; A6209; A6222; Q4131; A6250

== ENCOUNTER 2017-09-05 09:47 | Outpatient (CLI) | payer MEDICAID | END 2017-09-05 10:35 | disposition home or self-care (01) | LOC: WOUND CARE 09:47 → EDSTATUS 10:00 → WOUND CARE 10:35 | PROVIDERS: ATTEND Surgery | DX: T87.89 Other complications of amputation stump (principal); E11.622 Type 2 diabetes mellitus with other skin ulcer; L97.821 Non-pressure chronic ulcer of other part of left lower leg limited to breakdown of skin; E11.22 Type 2 diabetes mellitus with diabetic chronic kidney disease; I13.0 Hypertensive heart and chronic kidney disease with heart failure and stage 1 through stage 4 chronic kidney disease, or unspecified chronic kidney disease; N18.3 Chronic kidney disease, stage 3 (moderate); I50.23 Acute on chronic systolic (congestive) heart failure; I25.10 Atherosclerotic heart disease of native coronary artery without angina pectoris; K21.9 Gastro-esophageal reflux disease without esophagitis; E11.40 Type 2 diabetes mellitus with diabetic neuropathy, unspecified; E11.52 Type 2 diabetes mellitus with diabetic peripheral angiopathy with gangrene; E78.5 Hyperlipidemia, unspecified; E11.42 Type 2 diabetes mellitus with diabetic polyneuropathy; E11.21 Type 2 diabetes mellitus with diabetic nephropathy; F32.9 Major depressive disorder, single episode, unspecified; F17.210 Nicotine dependence, cigarettes, uncomplicated; Z90.49 Acquired absence of other specified parts of digestive tract; Z79.4 Long term (current) use of insulin; Z79.899 Other long term (current) drug therapy; Z85.038 Personal history of other malignant neoplasm of large intestine; Z85.048 Personal history of other malignant neoplasm of rectum, rectosigmoid junction, and anus; Z68.25 Body mass index [BMI] 25.0-25.9, adult; Z79.01 Long term (current) use of anticoagulants; Z79.82 Long term (current) use of aspirin; Z95.0 Presence of cardiac pacemaker; Y83.5 Amputation of limb(s) as the cause of abnormal reaction of the patient, or of later complication, without mention of misadventure at the time of the procedure | CPT/HCPCS: 82948; 99211; A6206; A6213 ==

== ENCOUNTER 2017-09-12 10:10 | Day surgery (SDC) | payer MEDICAID ==
[2017-09-12] MEDS ORDERED: LIDOcaine 2% 5ml jelly ONE (11:11)
== END 2017-09-12 12:08 | disposition home or self-care (01) ==
LOC: WOUND CARE 10:10
PROVIDERS: ATTEND Surgery
DX: T87.89 Other complications of amputation stump (principal); E11.622 Type 2 diabetes mellitus with other skin ulcer; L97.821 Non-pressure chronic ulcer of other part of left lower leg limited to breakdown of skin; E11.621 Type 2 diabetes mellitus with foot ulcer; L97.511 Non-pressure chronic ulcer of other part of right foot limited to breakdown of skin; E11.42 Type 2 diabetes mellitus with diabetic polyneuropathy; E11.21 Type 2 diabetes mellitus with diabetic nephropathy; E11.22 Type 2 diabetes mellitus with diabetic chronic kidney disease; E11.40 Type 2 diabetes mellitus with diabetic neuropathy, unspecified; I13.0 Hypertensive heart and chronic kidney disease with heart failure and stage 1 through stage 4 chronic kidney disease, or unspecified chronic kidney disease; I50.23 Acute on chronic systolic (congestive) heart failure; N18.3 Chronic kidney disease, stage 3 (moderate); I25.10 Atherosclerotic heart disease of native coronary artery without angina pectoris; K21.9 Gastro-esophageal reflux disease without esophagitis; E11.52 Type 2 diabetes mellitus with diabetic peripheral angiopathy with gangrene; E78.5 Hyperlipidemia, unspecified; F32.9 Major depressive disorder, single episode, unspecified; F17.210 Nicotine dependence, cigarettes, uncomplicated; Z90.49 Acquired absence of other specified parts of digestive tract; Z79.4 Long term (current) use of insulin; Z79.899 Other long term (current) drug therapy; Z85.038 Personal history of other malignant neoplasm of large intestine; Z85.048 Personal history of other malignant neoplasm of rectum, rectosigmoid junction, and anus; Z68.25 Body mass index [BMI] 25.0-25.9, adult; Z79.01 Long term (current) use of anticoagulants; Z79.82 Long term (current) use of aspirin; Z95.0 Presence of cardiac pacemaker; Y83.5 Amputation of limb(s) as the cause of abnormal reaction of the patient, or of later complication, without mention of misadventure at the time of the procedure
CPT/HCPCS: 11042; 36416; 82948; A6021; A6206; A4456

== ENCOUNTER 2017-09-19 09:49 | Day surgery (SDC) | payer MEDICAID ==
[2017-09-19] MEDS ORDERED: LIDOcaine 2% 5ml jelly ONE (10:36)
== END 2017-09-19 11:20 | disposition home or self-care (01) ==
LOC: WOUND CARE 09:49
PROVIDERS: ATTEND Surgery
DX: T87.81 Dehiscence of amputation stump (principal); E11.622 Type 2 diabetes mellitus with other skin ulcer; L97.821 Non-pressure chronic ulcer of other part of left lower leg limited to breakdown of skin; E11.621 Type 2 diabetes mellitus with foot ulcer; L97.511 Non-pressure chronic ulcer of other part of right foot limited to breakdown of skin; E11.42 Type 2 diabetes mellitus with diabetic polyneuropathy; E11.21 Type 2 diabetes mellitus with diabetic nephropathy; E11.22 Type 2 diabetes mellitus with diabetic chronic kidney disease; E11.40 Type 2 diabetes mellitus with diabetic neuropathy, unspecified; I13.0 Hypertensive heart and chronic kidney disease with heart failure and stage 1 through stage 4 chronic kidney disease, or unspecified chronic kidney disease; I50.23 Acute on chronic systolic (congestive) heart failure; N18.3 Chronic kidney disease, stage 3 (moderate); I25.10 Atherosclerotic heart disease of native coronary artery without angina pectoris; K21.9 Gastro-esophageal reflux disease without esophagitis; E11.52 Type 2 diabetes mellitus with diabetic peripheral angiopathy with gangrene; E78.5 Hyperlipidemia, unspecified; F32.9 Major depressive disorder, single episode, unspecified; F17.210 Nicotine dependence, cigarettes, uncomplicated; Z90.49 Acquired absence of other specified parts of digestive tract; Z79.4 Long term (current) use of insulin; Z79.899 Other long term (current) drug therapy; Z85.038 Personal history of other malignant neoplasm of large intestine; Z85.048 Personal history of other malignant neoplasm of rectum, rectosigmoid junction, and anus; Z68.25 Body mass index [BMI] 25.0-25.9, adult; Z79.01 Long term (current) use of anticoagulants; Z79.82 Long term (current) use of aspirin; Z95.0 Presence of cardiac pacemaker; Y83.5 Amputation of limb(s) as the cause of abnormal reaction of the patient, or of later complication, without mention of misadventure at the time of the procedure
CPT/HCPCS: 15271; 36416; 82948; A6021; A6206; A6209; Q4131

== ENCOUNTER 2017-09-26 09:54 | Outpatient (CLI) | payer MEDICAID | END 2017-09-26 11:38 | disposition home or self-care (01) | LOC: WOUND CARE 09:54 → EDSTATUS 10:00 → WOUND CARE 11:38 | PROVIDERS: ATTEND Surgery | DX: T87.81 Dehiscence of amputation stump (principal); E11.622 Type 2 diabetes mellitus with other skin ulcer; L97.821 Non-pressure chronic ulcer of other part of left lower leg limited to breakdown of skin; E11.621 Type 2 diabetes mellitus with foot ulcer; L97.511 Non-pressure chronic ulcer of other part of right foot limited to breakdown of skin; E11.42 Type 2 diabetes mellitus with diabetic polyneuropathy; E11.21 Type 2 diabetes mellitus with diabetic nephropathy; E11.22 Type 2 diabetes mellitus with diabetic chronic kidney disease; E11.40 Type 2 diabetes mellitus with diabetic neuropathy, unspecified; I13.0 Hypertensive heart and chronic kidney disease with heart failure and stage 1 through stage 4 chronic kidney disease, or unspecified chronic kidney disease; I50.23 Acute on chronic systolic (congestive) heart failure; N18.3 Chronic kidney disease, stage 3 (moderate); I25.10 Atherosclerotic heart disease of native coronary artery without angina pectoris; K21.9 Gastro-esophageal reflux disease without esophagitis; E11.52 Type 2 diabetes mellitus with diabetic peripheral angiopathy with gangrene; E78.5 Hyperlipidemia, unspecified; F32.9 Major depressive disorder, single episode, unspecified; F17.210 Nicotine dependence, cigarettes, uncomplicated; Z90.49 Acquired absence of other specified parts of digestive tract; Z79.4 Long term (current) use of insulin; Z79.899 Other long term (current) drug therapy; Z85.038 Personal history of other malignant neoplasm of large intestine; Z85.048 Personal history of other malignant neoplasm of rectum, rectosigmoid junction, and anus; Z68.25 Body mass index [BMI] 25.0-25.9, adult; Z79.01 Long term (current) use of anticoagulants; Z79.82 Long term (current) use of aspirin; Z95.0 Presence of cardiac pacemaker; Y83.5 Amputation of limb(s) as the cause of abnormal reaction of the patient, or of later complication, without mention of misadventure at the time of the procedure | CPT/HCPCS: 36416; 82948; 99211; A6021; A6206; A6212 ==

== ENCOUNTER 2017-10-03 09:59 | Day surgery (SDC) | payer MEDICAID ==
[2017-10-03] MEDS ORDERED: LIDOcaine 2% 5ml jelly ONE (10:55)
== END 2017-10-03 12:00 | disposition home or self-care (01) ==
LOC: WOUND CARE 09:59
PROVIDERS: ATTEND Surgery
DX: T87.81 Dehiscence of amputation stump (principal); E11.622 Type 2 diabetes mellitus with other skin ulcer; L97.821 Non-pressure chronic ulcer of other part of left lower leg limited to breakdown of skin; E11.621 Type 2 diabetes mellitus with foot ulcer; L97.511 Non-pressure chronic ulcer of other part of right foot limited to breakdown of skin; E11.42 Type 2 diabetes mellitus with diabetic polyneuropathy; E11.21 Type 2 diabetes mellitus with diabetic nephropathy; E11.22 Type 2 diabetes mellitus with diabetic chronic kidney disease; E11.40 Type 2 diabetes mellitus with diabetic neuropathy, unspecified; I13.0 Hypertensive heart and chronic kidney disease with heart failure and stage 1 through stage 4 chronic kidney disease, or unspecified chronic kidney disease; I50.23 Acute on chronic systolic (congestive) heart failure; N18.3 Chronic kidney disease, stage 3 (moderate); I25.10 Atherosclerotic heart disease of native coronary artery without angina pectoris; K21.9 Gastro-esophageal reflux disease without esophagitis; E11.52 Type 2 diabetes mellitus with diabetic peripheral angiopathy with gangrene; E78.5 Hyperlipidemia, unspecified; F32.9 Major depressive disorder, single episode, unspecified; F17.210 Nicotine dependence, cigarettes, uncomplicated; Z90.49 Acquired absence of other specified parts of digestive tract; Z79.4 Long term (current) use of insulin; Z79.899 Other long term (current) drug therapy; Z85.038 Personal history of other malignant neoplasm of large intestine; Z85.048 Personal history of other malignant neoplasm of rectum, rectosigmoid junction, and anus; Z68.25 Body mass index [BMI] 25.0-25.9, adult; Z79.01 Long term (current) use of anticoagulants; Z79.82 Long term (current) use of aspirin; Z95.0 Presence of cardiac pacemaker; Y83.5 Amputation of limb(s) as the cause of abnormal reaction of the patient, or of later complication, without mention of misadventure at the time of the procedure
CPT/HCPCS: 15271; 36416; 82948; 87070; 87075; 87102; A6222; Q4131; 87186; A6250

== ENCOUNTER 2017-10-10 10:05 | Day surgery (SDC) | payer MEDICAID | END 2017-10-10 11:40 | disposition home or self-care (01) | LOC: WOUND CARE 10:05 | PROVIDERS: ATTEND Surgery | DX: T87.81 Dehiscence of amputation stump (principal); E11.622 Type 2 diabetes mellitus with other skin ulcer; L97.821 Non-pressure chronic ulcer of other part of left lower leg limited to breakdown of skin; E11.621 Type 2 diabetes mellitus with foot ulcer; L97.511 Non-pressure chronic ulcer of other part of right foot limited to breakdown of skin; E11.42 Type 2 diabetes mellitus with diabetic polyneuropathy; E11.21 Type 2 diabetes mellitus with diabetic nephropathy; E11.22 Type 2 diabetes mellitus with diabetic chronic kidney disease; E11.40 Type 2 diabetes mellitus with diabetic neuropathy, unspecified; E11.52 Type 2 diabetes mellitus with diabetic peripheral angiopathy with gangrene; I13.0 Hypertensive heart and chronic kidney disease with heart failure and stage 1 through stage 4 chronic kidney disease, or unspecified chronic kidney disease; I50.23 Acute on chronic systolic (congestive) heart failure; N18.3 Chronic kidney disease, stage 3 (moderate); I25.10 Atherosclerotic heart disease of native coronary artery without angina pectoris; K21.9 Gastro-esophageal reflux disease without esophagitis; E78.5 Hyperlipidemia, unspecified; F32.9 Major depressive disorder, single episode, unspecified; F17.210 Nicotine dependence, cigarettes, uncomplicated; Z90.49 Acquired absence of other specified parts of digestive tract; Z79.4 Long term (current) use of insulin; Z79.899 Other long term (current) drug therapy; Z85.038 Personal history of other malignant neoplasm of large intestine; Z85.048 Personal history of other malignant neoplasm of rectum, rectosigmoid junction, and anus; Z68.25 Body mass index [BMI] 25.0-25.9, adult; Z79.01 Long term (current) use of anticoagulants; Z79.82 Long term (current) use of aspirin; Z95.0 Presence of cardiac pacemaker; Y83.5 Amputation of limb(s) as the cause of abnormal reaction of the patient, or of later complication, without mention of misadventure at the time of the procedure | CPT/HCPCS: 15271; 36416; 82948; A6209; A6212; A6222; Q4106 ==

== ENCOUNTER 2017-10-17 09:54 | Outpatient (CLI) | payer MEDICAID ==
[2017-10-17] MEDS ORDERED: LIDOcaine 2% 5ml jelly ONE (10:42)
[2017-10-17] MEDS ORDERED: Silvasorb gel 45gm tube TP ONE (11:45)
== END 2017-10-17 12:00 | disposition home or self-care (01) ==
LOC: WOUND CARE 09:54 → EDSTATUS 10:00 → WOUND CARE 12:00
PROVIDERS: ATTEND Surgery
DX: T87.81 Dehiscence of amputation stump (principal); E11.622 Type 2 diabetes mellitus with other skin ulcer; L97.822 Non-pressure chronic ulcer of other part of left lower leg with fat layer exposed; E11.42 Type 2 diabetes mellitus with diabetic polyneuropathy; E11.21 Type 2 diabetes mellitus with diabetic nephropathy; E11.22 Type 2 diabetes mellitus with diabetic chronic kidney disease; E11.40 Type 2 diabetes mellitus with diabetic neuropathy, unspecified; E11.52 Type 2 diabetes mellitus with diabetic peripheral angiopathy with gangrene; I13.0 Hypertensive heart and chronic kidney disease with heart failure and stage 1 through stage 4 chronic kidney disease, or unspecified chronic kidney disease; I50.23 Acute on chronic systolic (congestive) heart failure; N18.3 Chronic kidney disease, stage 3 (moderate); I25.10 Atherosclerotic heart disease of native coronary artery without angina pectoris; K21.9 Gastro-esophageal reflux disease without esophagitis; E78.5 Hyperlipidemia, unspecified; F32.9 Major depressive disorder, single episode, unspecified; F17.210 Nicotine dependence, cigarettes, uncomplicated; Z90.49 Acquired absence of other specified parts of digestive tract; Z79.4 Long term (current) use of insulin; Z79.899 Other long term (current) drug therapy; Z85.038 Personal history of other malignant neoplasm of large intestine; Z85.048 Personal history of other malignant neoplasm of rectum, rectosigmoid junction, and anus; Z68.25 Body mass index [BMI] 25.0-25.9, adult; Z79.01 Long term (current) use of anticoagulants; Z79.82 Long term (current) use of aspirin; Z95.0 Presence of cardiac pacemaker; Y83.5 Amputation of limb(s) as the cause of abnormal reaction of the patient, or of later complication, without mention of misadventure at the time of the procedure
CPT/HCPCS: 36416; 82948; 99215; A6212

== ENCOUNTER 2017-10-24 09:46 | Day surgery (SDC) | payer MEDICAID ==
[2017-10-24] MEDS ORDERED: LIDOcaine 2% 5ml jelly ONE (10:20)
== END 2017-10-24 10:53 | disposition home or self-care (01) ==
LOC: WOUND CARE 09:46
PROVIDERS: ATTEND Surgery
DX: T87.81 Dehiscence of amputation stump (principal); E11.622 Type 2 diabetes mellitus with other skin ulcer; L97.822 Non-pressure chronic ulcer of other part of left lower leg with fat layer exposed; E11.42 Type 2 diabetes mellitus with diabetic polyneuropathy; E11.21 Type 2 diabetes mellitus with diabetic nephropathy; E11.22 Type 2 diabetes mellitus with diabetic chronic kidney disease; E11.40 Type 2 diabetes mellitus with diabetic neuropathy, unspecified; E11.52 Type 2 diabetes mellitus with diabetic peripheral angiopathy with gangrene; I13.0 Hypertensive heart and chronic kidney disease with heart failure and stage 1 through stage 4 chronic kidney disease, or unspecified chronic kidney disease; I50.23 Acute on chronic systolic (congestive) heart failure; N18.3 Chronic kidney disease, stage 3 (moderate); I25.10 Atherosclerotic heart disease of native coronary artery without angina pectoris; K21.9 Gastro-esophageal reflux disease without esophagitis; E78.5 Hyperlipidemia, unspecified; F32.9 Major depressive disorder, single episode, unspecified; F17.210 Nicotine dependence, cigarettes, uncomplicated; Z90.49 Acquired absence of other specified parts of digestive tract; Z79.4 Long term (current) use of insulin; Z79.899 Other long term (current) drug therapy; Z85.038 Personal history of other malignant neoplasm of large intestine; Z85.048 Personal history of other malignant neoplasm of rectum, rectosigmoid junction, and anus; Z68.25 Body mass index [BMI] 25.0-25.9, adult; Z79.01 Long term (current) use of anticoagulants; Z79.82 Long term (current) use of aspirin; Z95.0 Presence of cardiac pacemaker; Y83.5 Amputation of limb(s) as the cause of abnormal reaction of the patient, or of later complication, without mention of misadventure at the time of the procedure
CPT/HCPCS: 11042; 36416; 82948; A6021; A6206; A6446

== ENCOUNTER 2017-10-31 09:50 | Day surgery (SDC) | payer MEDICAID ==
[2017-10-31] MEDS ORDERED: LIDOcaine 2% 5ml jelly ONE (10:10)
== END 2017-10-31 11:12 | disposition home or self-care (01) ==
LOC: WOUND CARE 09:50
PROVIDERS: ATTEND Surgery
DX: T87.81 Dehiscence of amputation stump (principal); E11.622 Type 2 diabetes mellitus with other skin ulcer; L97.822 Non-pressure chronic ulcer of other part of left lower leg with fat layer exposed; E11.42 Type 2 diabetes mellitus with diabetic polyneuropathy; E11.65 Type 2 diabetes mellitus with hyperglycemia; E11.21 Type 2 diabetes mellitus with diabetic nephropathy; E11.22 Type 2 diabetes mellitus with diabetic chronic kidney disease; E11.40 Type 2 diabetes mellitus with diabetic neuropathy, unspecified; E11.52 Type 2 diabetes mellitus with diabetic peripheral angiopathy with gangrene; I13.0 Hypertensive heart and chronic kidney disease with heart failure and stage 1 through stage 4 chronic kidney disease, or unspecified chronic kidney disease; I50.23 Acute on chronic systolic (congestive) heart failure; N18.3 Chronic kidney disease, stage 3 (moderate); I25.10 Atherosclerotic heart disease of native coronary artery without angina pectoris; K21.9 Gastro-esophageal reflux disease without esophagitis; E78.5 Hyperlipidemia, unspecified; F32.9 Major depressive disorder, single episode, unspecified; F17.210 Nicotine dependence, cigarettes, uncomplicated; Z90.49 Acquired absence of other specified parts of digestive tract; Z79.4 Long term (current) use of insulin; Z79.899 Other long term (current) drug therapy; Z85.038 Personal history of other malignant neoplasm of large intestine; Z85.048 Personal history of other malignant neoplasm of rectum, rectosigmoid junction, and anus; Z68.25 Body mass index [BMI] 25.0-25.9, adult; Z79.01 Long term (current) use of anticoagulants; Z79.82 Long term (current) use of aspirin; Z95.0 Presence of cardiac pacemaker; Y83.5 Amputation of limb(s) as the cause of abnormal reaction of the patient, or of later complication, without mention of misadventure at the time of the procedure
CPT/HCPCS: 15271; 36416; 82948; A6209; A6222; Q4131; A6250

== ENCOUNTER 2017-11-07 09:40 | Outpatient (CLI) | payer MEDICAID ==
[~2017-11-07 09:40] MED LIST changes: +METF-436 PO; -METF500T4 PO
[2017-11-07] MEDS ORDERED: LIDOcaine 2% 5ml jelly ONE (10:54)
[2017-11-07] MEDS ORDERED: gentamicin 0.1% topical ointment 15gm TP ONE (11:03)
== END 2017-11-07 11:13 | disposition home or self-care (01) ==
LOC: WOUND CARE 09:40 → EDSTATUS 10:00 → WOUND CARE 11:13
PROVIDERS: ATTEND Surgery
DX: T87.81 Dehiscence of amputation stump (principal); E11.622 Type 2 diabetes mellitus with other skin ulcer; L98.492 Non-pressure chronic ulcer of skin of other sites with fat layer exposed; E11.42 Type 2 diabetes mellitus with diabetic polyneuropathy; E11.65 Type 2 diabetes mellitus with hyperglycemia; E11.21 Type 2 diabetes mellitus with diabetic nephropathy; E11.52 Type 2 diabetes mellitus with diabetic peripheral angiopathy with gangrene; I96 Gangrene, not elsewhere classified; E11.22 Type 2 diabetes mellitus with diabetic chronic kidney disease; I13.0 Hypertensive heart and chronic kidney disease with heart failure and stage 1 through stage 4 chronic kidney disease, or unspecified chronic kidney disease; I50.23 Acute on chronic systolic (congestive) heart failure; N18.3 Chronic kidney disease, stage 3 (moderate); I25.10 Atherosclerotic heart disease of native coronary artery without angina pectoris; K21.9 Gastro-esophageal reflux disease without esophagitis; E78.5 Hyperlipidemia, unspecified; F32.9 Major depressive disorder, single episode, unspecified; F17.210 Nicotine dependence, cigarettes, uncomplicated; Z90.49 Acquired absence of other specified parts of digestive tract; Z79.4 Long term (current) use of insulin; Z79.899 Other long term (current) drug therapy; Z85.038 Personal history of other malignant neoplasm of large intestine; Z85.048 Personal history of other malignant neoplasm of rectum, rectosigmoid junction, and anus; Z68.25 Body mass index [BMI] 25.0-25.9, adult; Z79.01 Long term (current) use of anticoagulants; Z79.82 Long term (current) use of aspirin; Z95.0 Presence of cardiac pacemaker; Y83.5 Amputation of limb(s) as the cause of abnormal reaction of the patient, or of later complication, without mention of misadventure at the time of the procedure
CPT/HCPCS: 99215; A6223; A6446

== ENCOUNTER 2017-11-17 09:56 | Day surgery (SDC) | payer MEDICAID ==
[2017-11-17] MEDS ORDERED: cadexomer iodine 40gm GEL.GM TP ONE (11:09)
[2017-11-17] MEDS ORDERED: Silvasorb gel 45gm tube TP ONE (11:11)
== END 2017-11-17 11:21 | disposition home or self-care (01) ==
LOC: WOUND CARE 09:56
PROVIDERS: ATTEND Surgery
DX: T87.81 Dehiscence of amputation stump (principal); E11.622 Type 2 diabetes mellitus with other skin ulcer; L98.492 Non-pressure chronic ulcer of skin of other sites with fat layer exposed; E11.42 Type 2 diabetes mellitus with diabetic polyneuropathy; E11.65 Type 2 diabetes mellitus with hyperglycemia; E11.21 Type 2 diabetes mellitus with diabetic nephropathy; E11.52 Type 2 diabetes mellitus with diabetic peripheral angiopathy with gangrene; I96 Gangrene, not elsewhere classified; E11.22 Type 2 diabetes mellitus with diabetic chronic kidney disease; I13.0 Hypertensive heart and chronic kidney disease with heart failure and stage 1 through stage 4 chronic kidney disease, or unspecified chronic kidney disease; I50.23 Acute on chronic systolic (congestive) heart failure; N18.3 Chronic kidney disease, stage 3 (moderate); I25.10 Atherosclerotic heart disease of native coronary artery without angina pectoris; K21.9 Gastro-esophageal reflux disease without esophagitis; E78.5 Hyperlipidemia, unspecified; F32.9 Major depressive disorder, single episode, unspecified; F17.210 Nicotine dependence, cigarettes, uncomplicated; Z90.49 Acquired absence of other specified parts of digestive tract; Z79.4 Long term (current) use of insulin; Z79.899 Other long term (current) drug therapy; Z85.038 Personal history of other malignant neoplasm of large intestine; Z85.048 Personal history of other malignant neoplasm of rectum, rectosigmoid junction, and anus; Z68.25 Body mass index [BMI] 25.0-25.9, adult; Z79.01 Long term (current) use of anticoagulants; Z79.82 Long term (current) use of aspirin; Z95.0 Presence of cardiac pacemaker; Y83.5 Amputation of limb(s) as the cause of abnormal reaction of the patient, or of later complication, without mention of misadventure at the time of the procedure
CPT/HCPCS: 36416; 82948; 99215; A6212

== ENCOUNTER 2017-11-24 10:18 | Day surgery (SDC) | payer MEDICAID ==
[2017-11-24] MEDS ORDERED: LIDOcaine 2% 5ml jelly ONE (10:53)
== END 2017-11-24 11:30 | disposition home or self-care (01) ==
LOC: WOUND CARE 10:18
PROVIDERS: ATTEND Surgery
DX: T87.81 Dehiscence of amputation stump (principal); E11.622 Type 2 diabetes mellitus with other skin ulcer; L98.492 Non-pressure chronic ulcer of skin of other sites with fat layer exposed; E11.42 Type 2 diabetes mellitus with diabetic polyneuropathy; E11.65 Type 2 diabetes mellitus with hyperglycemia; E11.21 Type 2 diabetes mellitus with diabetic nephropathy; E11.52 Type 2 diabetes mellitus with diabetic peripheral angiopathy with gangrene; I96 Gangrene, not elsewhere classified; E11.22 Type 2 diabetes mellitus with diabetic chronic kidney disease; I13.0 Hypertensive heart and chronic kidney disease with heart failure and stage 1 through stage 4 chronic kidney disease, or unspecified chronic kidney disease; I50.23 Acute on chronic systolic (congestive) heart failure; N18.3 Chronic kidney disease, stage 3 (moderate); I25.10 Atherosclerotic heart disease of native coronary artery without angina pectoris; K21.9 Gastro-esophageal reflux disease without esophagitis; E78.5 Hyperlipidemia, unspecified; F32.9 Major depressive disorder, single episode, unspecified; F17.210 Nicotine dependence, cigarettes, uncomplicated; Z90.49 Acquired absence of other specified parts of digestive tract; Z79.4 Long term (current) use of insulin; Z79.899 Other long term (current) drug therapy; Z85.038 Personal history of other malignant neoplasm of large intestine; Z85.048 Personal history of other malignant neoplasm of rectum, rectosigmoid junction, and anus; Z68.25 Body mass index [BMI] 25.0-25.9, adult; Z79.01 Long term (current) use of anticoagulants; Z79.82 Long term (current) use of aspirin; Z95.0 Presence of cardiac pacemaker; Y83.5 Amputation of limb(s) as the cause of abnormal reaction of the patient, or of later complication, without mention of misadventure at the time of the procedure
CPT/HCPCS: 11042; 87070; 87075; 87102; A6021; A6206; A6212; 87077; 87186

== ENCOUNTER 2017-12-05 09:50 | Outpatient (CLI) | payer MEDICAID ==
[2017-12-05] MEDS ORDERED: LIDOcaine 2% 5ml jelly ONE (11:53)
== END 2017-12-05 12:55 | disposition home or self-care (01) ==
LOC: WOUND CARE 09:50 → EDSTATUS 10:00 → WOUND CARE 12:55
PROVIDERS: ATTEND Surgery
DX: T87.81 Dehiscence of amputation stump (principal); E11.622 Type 2 diabetes mellitus with other skin ulcer; L98.492 Non-pressure chronic ulcer of skin of other sites with fat layer exposed; E11.42 Type 2 diabetes mellitus with diabetic polyneuropathy; E11.65 Type 2 diabetes mellitus with hyperglycemia; E11.21 Type 2 diabetes mellitus with diabetic nephropathy; E11.52 Type 2 diabetes mellitus with diabetic peripheral angiopathy with gangrene; I96 Gangrene, not elsewhere classified; E11.22 Type 2 diabetes mellitus with diabetic chronic kidney disease; I13.0 Hypertensive heart and chronic kidney disease with heart failure and stage 1 through stage 4 chronic kidney disease, or unspecified chronic kidney disease; I50.23 Acute on chronic systolic (congestive) heart failure; N18.3 Chronic kidney disease, stage 3 (moderate); I25.10 Atherosclerotic heart disease of native coronary artery without angina pectoris; K21.9 Gastro-esophageal reflux disease without esophagitis; E78.5 Hyperlipidemia, unspecified; F32.9 Major depressive disorder, single episode, unspecified; F17.210 Nicotine dependence, cigarettes, uncomplicated; Z90.49 Acquired absence of other specified parts of digestive tract; Z79.4 Long term (current) use of insulin; Z79.899 Other long term (current) drug therapy; Z85.038 Personal history of other malignant neoplasm of large intestine; Z85.048 Personal history of other malignant neoplasm of rectum, rectosigmoid junction, and anus; Z68.25 Body mass index [BMI] 25.0-25.9, adult; Z79.01 Long term (current) use of anticoagulants; Z79.82 Long term (current) use of aspirin; Z95.0 Presence of cardiac pacemaker; Y83.5 Amputation of limb(s) as the cause of abnormal reaction of the patient, or of later complication, without mention of misadventure at the time of the procedure
CPT/HCPCS: 99215; A6212

== ENCOUNTER 2017-12-12 10:00 | Day surgery (SDC) | payer MEDICAID ==
[2017-12-12] MEDS ORDERED: LIDOcaine 2% 5ml jelly ONE (10:25)
[2017-12-12] MEDS ORDERED: SIMV40TA4 (23:24)
[2017-12-12] MEDS ORDERED: RIFA300C2 (23:24)
[2017-12-12] MEDS ORDERED: ERGO2000 (23:24)
[2017-12-12] MEDS ORDERED: METF-436 (23:24)
[2017-12-12] MEDS ORDERED: FURO-150 PO (23:24)
[2017-12-12] MEDS ORDERED: LISI10TA4 (23:24)
[2017-12-12] MEDS ORDERED: ESCI20TA (23:24)
[2017-12-13] MEDS ORDERED: MAGN296S50 PO (02:37)
[2017-12-13] MEDS ORDERED: ZOLP10TA PO (02:54)
== END 2017-12-12 10:56 | disposition home or self-care (01) ==
LOC: WOUND CARE 10:00
PROVIDERS: ATTEND Surgery
DX: T87.81 Dehiscence of amputation stump (principal); E11.622 Type 2 diabetes mellitus with other skin ulcer; L98.492 Non-pressure chronic ulcer of skin of other sites with fat layer exposed; E11.42 Type 2 diabetes mellitus with diabetic polyneuropathy; E11.65 Type 2 diabetes mellitus with hyperglycemia; E11.21 Type 2 diabetes mellitus with diabetic nephropathy; E11.52 Type 2 diabetes mellitus with diabetic peripheral angiopathy with gangrene; I96 Gangrene, not elsewhere classified; E11.22 Type 2 diabetes mellitus with diabetic chronic kidney disease; I13.0 Hypertensive heart and chronic kidney disease with heart failure and stage 1 through stage 4 chronic kidney disease, or unspecified chronic kidney disease; I50.23 Acute on chronic systolic (congestive) heart failure; N18.3 Chronic kidney disease, stage 3 (moderate); I25.10 Atherosclerotic heart disease of native coronary artery without angina pectoris; K21.9 Gastro-esophageal reflux disease without esophagitis; E78.5 Hyperlipidemia, unspecified; F32.9 Major depressive disorder, single episode, unspecified; F17.210 Nicotine dependence, cigarettes, uncomplicated; Z90.49 Acquired absence of other specified parts of digestive tract; Z79.4 Long term (current) use of insulin; Z79.899 Other long term (current) drug therapy; Z85.038 Personal history of other malignant neoplasm of large intestine; Z85.048 Personal history of other malignant neoplasm of rectum, rectosigmoid junction, and anus; Z68.25 Body mass index [BMI] 25.0-25.9, adult; Z79.01 Long term (current) use of anticoagulants; Z79.82 Long term (current) use of aspirin; Z95.0 Presence of cardiac pacemaker; Y83.5 Amputation of limb(s) as the cause of abnormal reaction of the patient, or of later complication, without mention of misadventure at the time of the procedure
CPT/HCPCS: 15271; 36416; 82948; A6209; A6222; Q4131; A6250

== ENCOUNTER 2017-12-12 22:05 | Emergency (ER) | payer MEDICAID ==
[~2017-12-12] VITALS: Ht 180.3 cm; Wt 82.0 kg
[2017-12-12] MEDS ORDERED: ondansetron/PF 4mg/2ml inj IV ONE (22:30)
[2017-12-12] MEDS ORDERED: normal saline 1000ML IV soln IVB ONE (22:30)
[2017-12-12 22:46] LABS: BASOPHILS % (AUTO) 0.3 % (0-1); EOSINOPHILS # (AUTO) 0.3 X10'3 (0-0.9); EOSINOPHILS % (AUTO) 2.8 % (0-6); HEMATOCRIT 35.1 % (42.0-52.0); HEMOGLOBIN 12.1 g/dl (14.0-17.9); LYMPHOCYTES # (AUTO) 1.4 X10'3 (1.1-4.8); LYMPHOCYTES % (AUTO) 15.1 % (21-51); MEAN CORPUSCULAR HEMOGLOBIN 31.1 PG (27.0-31.0); MEAN CORPUSCULAR HGB CONC 34.4 % (33.0-36.5); MEAN CORPUSCULAR VOLUME 90.5 FL (78-98); MEAN PLATELET VOLUME 7.2 FL (7.4-10.4); MONOCYTES # (AUTO) 0.5 X10'3 (0-0.9); MONOCYTES % (AUTO) 5.2 % (2-12); NEUTROPHILS # (AUTO) 6.9 X10'3 (1.8-7.7); NEUTROPHILS % (AUTO) 76.6 % (42-75); PLATELET COUNT 251 X10'3 (140-440); RED BLOOD COUNT 3.88 X10'6 (4.70-6.10); RED CELL DISTRIBUTION WIDTH 13.4 % (11.5-14.5)
[2017-12-12] MEDS: morphine 4 MG/ML inj SYRINge IV PRN (22:56)
[2017-12-12 23:05] LABS: ALANINE AMINOTRANSFERASE 18 U/L (12-78); ALBUMIN/GLOBULIN RATIO 0.8 (1.1-1.5); ALKALINE PHOSPHATASE 53 IU/L (46-116); ANION GAP 10 (8-16); ASPARTATE AMINO TRANSFERASE 13 U/L (10-37); BILIRUBIN,TOTAL 0.1 MG/DL (0.1-1.0); BLOOD UREA NITROGEN 20 MG/DL (7-18); BUN/CREATININE RATIO 14.2 (5.4-32.0); CALCIUM 8.1 MG/DL (8.5-10.1); CHLORIDE 106 MMOL/L (99-107); CREATININE 1.41 MG/DL (0.60-1.10); GLUCOSE 186 MG/DL (70-104); LIPASE 69 U/L (73-393); SODIUM 140 MMOL/L (135-145); TOTAL CARBON DIOXIDE 24.2 MMOL/L (24-32); TOTAL PROTEIN 6.7 G/DL (6.4-8.2); eGFR 51 ML/MIN
[2017-12-12] MEDS ORDERED: iohexol 300mg/ml 100ml inj. ONE (23:10)
[2017-12-12] MEDS ORDERED: FURO-150 PO (23:24)
[2017-12-12] MEDS ORDERED: SIMV40TA4 (23:24)
[2017-12-12] MEDS ORDERED: RIFA300C2 (23:24)
[2017-12-12] MEDS ORDERED: METF-436 (23:24)
[2017-12-12] MEDS ORDERED: ESCI20TA (23:24)
[2017-12-12] MEDS ORDERED: ERGO2000 (23:24)
[2017-12-12] MEDS ORDERED: LISI10TA4 (23:24)
[2017-12-13 00:23] LABS: CLARITY,URINE CLEAR (Clear); COLOR,URINE STRAW (Yellow); GLUCOSE, URINE 100 mg/dl (Neg); KETONES,URINE NEGATIVE (Neg); LEUKOCYTE ESTERASE ,URINE NEGATIVE (Neg); NITRITES, URINE NEGATIVE (Neg); OCCULT BLOOD,URINE SMALL (Neg); PH,URINE 6.5 (4.8-8.0); PROTEIN,URINE 100 mg/dl (Neg); UROBILINOGEN,URINE 0.2 E.U/dL (0.2-1.0)
[2017-12-13 00:24] LABS: UA COLLECTION TYPE FOLEY CATH
[2017-12-13 00:30] LABS: WBC,URINE 0-4 /HPF (0-4)
[2017-12-13 00:31] LABS: BACTERIA,URINE NONE SEEN /HPF (Neg); SQUAMOUS EPITHELIAL CELL,UR FEW /LPF (FEW); TRANSITIONAL EPI CELLS,URINE FEW /HPF; YEAST FEW /HPF (NEGATIVE)
[2017-12-13] MEDS: morphine 4 MG/ML inj SYRINge IV PRN (01:16)
[2017-12-13] MEDS ORDERED: MAGN296S50 PO (02:37)
[2017-12-13] MEDS ORDERED: ondansetron/PF 4mg/2ml inj IV ONE (02:40)
[2017-12-13] MEDS ORDERED: ZOLP10TA PO (02:54)
[2017-12-13 03:06] VITALS: BP 111/71
== END 2017-12-13 03:09 | disposition home or self-care (01) ==
LOC: ER 22:05
DX: R10.13 Epigastric pain (principal); K59.00 Constipation, unspecified; S81.802D Unspecified open wound, left lower leg, subsequent encounter; N18.9 Chronic kidney disease, unspecified; I50.9 Heart failure, unspecified; E11.9 Type 2 diabetes mellitus without complications; Z90.49 Acquired absence of other specified parts of digestive tract; Z98.890 Other specified postprocedural states; Z88.5 Allergy status to narcotic agent; Z88.8 Allergy status to other drugs, medicaments and biological substances; Z79.82 Long term (current) use of aspirin; Z79.4 Long term (current) use of insulin; Z79.84 Long term (current) use of oral hypoglycemic drugs; Z79.899 Other long term (current) drug therapy; X58.XXXD Exposure to other specified factors, subsequent encounter
CPT/HCPCS: 36415; 70450; 71045; 73590; 74177; 80053; 81001; 83690; 85025; 93005; 96361; 96374; 96375; 96376; 99285; J2270; J2405; J7030; Q9967

== ENCOUNTER 2017-12-19 09:52 | Outpatient (CLI) | payer MEDICAID ==
[~2017-12-19 09:52] MED LIST changes: +ERGO2000; +ESCI20TA; +LISI10TA4; +MAGN296S50 PO; +METF-436; +RIFA300C2; +SIMV40TA4; +ZOLP10TA PO
== END 2017-12-19 11:18 | disposition home or self-care (01) ==
LOC: WOUND CARE 09:52 → EDSTATUS 10:00 → WOUND CARE 11:18
PROVIDERS: ATTEND Surgery
DX: T87.81 Dehiscence of amputation stump (principal); E11.622 Type 2 diabetes mellitus with other skin ulcer; L98.492 Non-pressure chronic ulcer of skin of other sites with fat layer exposed; E11.42 Type 2 diabetes mellitus with diabetic polyneuropathy; E11.65 Type 2 diabetes mellitus with hyperglycemia; E11.21 Type 2 diabetes mellitus with diabetic nephropathy; E11.52 Type 2 diabetes mellitus with diabetic peripheral angiopathy with gangrene; I96 Gangrene, not elsewhere classified; E11.22 Type 2 diabetes mellitus with diabetic chronic kidney disease; I13.0 Hypertensive heart and chronic kidney disease with heart failure and stage 1 through stage 4 chronic kidney disease, or unspecified chronic kidney disease; I50.23 Acute on chronic systolic (congestive) heart failure; N18.3 Chronic kidney disease, stage 3 (moderate); I25.10 Atherosclerotic heart disease of native coronary artery without angina pectoris; K21.9 Gastro-esophageal reflux disease without esophagitis; E78.5 Hyperlipidemia, unspecified; F32.9 Major depressive disorder, single episode, unspecified; F17.210 Nicotine dependence, cigarettes, uncomplicated; Z90.49 Acquired absence of other specified parts of digestive tract; Z79.4 Long term (current) use of insulin; Z79.899 Other long term (current) drug therapy; Z85.038 Personal history of other malignant neoplasm of large intestine; Z85.048 Personal history of other malignant neoplasm of rectum, rectosigmoid junction, and anus; Z68.25 Body mass index [BMI] 25.0-25.9, adult; Z79.01 Long term (current) use of anticoagulants; Z79.82 Long term (current) use of aspirin; Z95.0 Presence of cardiac pacemaker; Y83.5 Amputation of limb(s) as the cause of abnormal reaction of the patient, or of later complication, without mention of misadventure at the time of the procedure
CPT/HCPCS: 36416; 82948; 99215

== ENCOUNTER 2017-12-26 09:56 | Outpatient (CLI) | payer MEDICAID ==
[~2017-12-26 09:56] MED LIST changes: -RIFA300C2
== END 2017-12-26 11:52 | disposition home or self-care (01) ==
LOC: WOUND CARE 09:56 → EDSTATUS 10:00 → WOUND CARE 11:52
PROVIDERS: ATTEND Surgery
DX: T87.81 Dehiscence of amputation stump (principal); E11.622 Type 2 diabetes mellitus with other skin ulcer; L98.492 Non-pressure chronic ulcer of skin of other sites with fat layer exposed; E11.42 Type 2 diabetes mellitus with diabetic polyneuropathy; E11.65 Type 2 diabetes mellitus with hyperglycemia; E11.21 Type 2 diabetes mellitus with diabetic nephropathy; E11.52 Type 2 diabetes mellitus with diabetic peripheral angiopathy with gangrene; I96 Gangrene, not elsewhere classified; E11.22 Type 2 diabetes mellitus with diabetic chronic kidney disease; I13.0 Hypertensive heart and chronic kidney disease with heart failure and stage 1 through stage 4 chronic kidney disease, or unspecified chronic kidney disease; I50.23 Acute on chronic systolic (congestive) heart failure; N18.3 Chronic kidney disease, stage 3 (moderate); I25.10 Atherosclerotic heart disease of native coronary artery without angina pectoris; K21.9 Gastro-esophageal reflux disease without esophagitis; E78.5 Hyperlipidemia, unspecified; F32.9 Major depressive disorder, single episode, unspecified; F17.210 Nicotine dependence, cigarettes, uncomplicated; Z90.49 Acquired absence of other specified parts of digestive tract; Z79.4 Long term (current) use of insulin; Z79.899 Other long term (current) drug therapy; Z85.038 Personal history of other malignant neoplasm of large intestine; Z85.048 Personal history of other malignant neoplasm of rectum, rectosigmoid junction, and anus; Z68.25 Body mass index [BMI] 25.0-25.9, adult; Z79.01 Long term (current) use of anticoagulants; Z79.82 Long term (current) use of aspirin; Z95.0 Presence of cardiac pacemaker; Y83.5 Amputation of limb(s) as the cause of abnormal reaction of the patient, or of later complication, without mention of misadventure at the time of the procedure
CPT/HCPCS: 36416; 82948; 99214

== ENCOUNTER 2018-01-02 09:53 | Outpatient (CLI) | payer MEDICAID | END 2018-01-02 11:50 | disposition home or self-care (01) | LOC: WOUND CARE 09:53 → EDSTATUS 10:00 → WOUND CARE 11:50 | PROVIDERS: ATTEND Surgery | DX: T87.81 Dehiscence of amputation stump (principal); E11.622 Type 2 diabetes mellitus with other skin ulcer; L98.492 Non-pressure chronic ulcer of skin of other sites with fat layer exposed; E11.42 Type 2 diabetes mellitus with diabetic polyneuropathy; E11.65 Type 2 diabetes mellitus with hyperglycemia; E11.21 Type 2 diabetes mellitus with diabetic nephropathy; E11.52 Type 2 diabetes mellitus with diabetic peripheral angiopathy with gangrene; I96 Gangrene, not elsewhere classified; E11.22 Type 2 diabetes mellitus with diabetic chronic kidney disease; I13.0 Hypertensive heart and chronic kidney disease with heart failure and stage 1 through stage 4 chronic kidney disease, or unspecified chronic kidney disease; I50.23 Acute on chronic systolic (congestive) heart failure; N18.3 Chronic kidney disease, stage 3 (moderate); I25.10 Atherosclerotic heart disease of native coronary artery without angina pectoris; K21.9 Gastro-esophageal reflux disease without esophagitis; E78.5 Hyperlipidemia, unspecified; F32.9 Major depressive disorder, single episode, unspecified; F17.210 Nicotine dependence, cigarettes, uncomplicated; Z90.49 Acquired absence of other specified parts of digestive tract; Z79.4 Long term (current) use of insulin; Z79.899 Other long term (current) drug therapy; Z85.038 Personal history of other malignant neoplasm of large intestine; Z85.048 Personal history of other malignant neoplasm of rectum, rectosigmoid junction, and anus; Z68.25 Body mass index [BMI] 25.0-25.9, adult; Z79.01 Long term (current) use of anticoagulants; Z79.82 Long term (current) use of aspirin; Z95.0 Presence of cardiac pacemaker; Y83.5 Amputation of limb(s) as the cause of abnormal reaction of the patient, or of later complication, without mention of misadventure at the time of the procedure | CPT/HCPCS: 99214 ==

== ENCOUNTER 2018-01-30 10:15 | Outpatient (CLI) | payer MEDICAID ==
[~2018-01-30 10:15] MED LIST changes: -TRAZ-143 PO; +TRAZ-218 PO
== END 2018-01-30 12:45 | disposition home or self-care (01) ==
LOC: WOUND CARE 10:15
PROVIDERS: ATTEND Surgery
DX: T87.81 Dehiscence of amputation stump (principal); E11.622 Type 2 diabetes mellitus with other skin ulcer; L98.492 Non-pressure chronic ulcer of skin of other sites with fat layer exposed; E11.42 Type 2 diabetes mellitus with diabetic polyneuropathy; E11.65 Type 2 diabetes mellitus with hyperglycemia; E11.21 Type 2 diabetes mellitus with diabetic nephropathy; E11.52 Type 2 diabetes mellitus with diabetic peripheral angiopathy with gangrene; I96 Gangrene, not elsewhere classified; E11.22 Type 2 diabetes mellitus with diabetic chronic kidney disease; I13.0 Hypertensive heart and chronic kidney disease with heart failure and stage 1 through stage 4 chronic kidney disease, or unspecified chronic kidney disease; I50.23 Acute on chronic systolic (congestive) heart failure; N18.3 Chronic kidney disease, stage 3 (moderate); I25.10 Atherosclerotic heart disease of native coronary artery without angina pectoris; K21.9 Gastro-esophageal reflux disease without esophagitis; E78.5 Hyperlipidemia, unspecified; F32.9 Major depressive disorder, single episode, unspecified; F17.210 Nicotine dependence, cigarettes, uncomplicated; Z90.49 Acquired absence of other specified parts of digestive tract; Z79.4 Long term (current) use of insulin; Z79.899 Other long term (current) drug therapy; Z85.038 Personal history of other malignant neoplasm of large intestine; Z85.048 Personal history of other malignant neoplasm of rectum, rectosigmoid junction, and anus; Z68.25 Body mass index [BMI] 25.0-25.9, adult; Z79.01 Long term (current) use of anticoagulants; Z79.82 Long term (current) use of aspirin; Z95.0 Presence of cardiac pacemaker; Y83.5 Amputation of limb(s) as the cause of abnormal reaction of the patient, or of later complication, without mention of misadventure at the time of the procedure
CPT/HCPCS: 99214; 99215

== ENCOUNTER 2018-03-05 18:03 | Emergency (ER) | payer MEDICAID ==
[~2018-03-05] VITALS: Ht 170.2 cm; Wt 84.1 kg
[2018-03-05 18:36] LABS: BASOPHILS # (AUTO) 0.1 X10'3 (0-0.2); BASOPHILS % (AUTO) 0.8 % (0-1); EOSINOPHILS # (AUTO) 0.1 X10'3 (0-0.9); EOSINOPHILS % (AUTO) 1.1 % (0-6); HEMATOCRIT 35.2 % (42.0-52.0); HEMOGLOBIN 11.8 g/dl (14.0-17.9); LYMPHOCYTES # (AUTO) 1.3 X10'3 (1.1-4.8); LYMPHOCYTES % (AUTO) 19.3 % (21-51); MEAN CORPUSCULAR HEMOGLOBIN 31.3 PG (27.0-31.0); MEAN CORPUSCULAR HGB CONC 33.6 % (33.0-36.5); MEAN CORPUSCULAR VOLUME 93.1 FL (78-98); MEAN PLATELET VOLUME 7.3 FL (7.4-10.4); MONOCYTES # (AUTO) 0.5 X10'3 (0-0.9); NEUTROPHILS # (AUTO) 4.8 X10'3 (1.8-7.7); NEUTROPHILS % (AUTO) 71.8 % (42-75); PLATELET COUNT 284 X10'3 (140-440); RED BLOOD COUNT 3.78 X10'6 (4.70-6.10); RED CELL DISTRIBUTION WIDTH 14.8 % (11.5-14.5); WHITE BLOOD COUNT 6.7 X10'3 (4.5-11.0)
[2018-03-05 18:48] LABS: INR 1.1 INR; PARTIAL THROMBOPLASTIN TIME 28 SECONDS (22-32); PROTHROMBIN TIME 11.1 SECONDS (9.0-12.0)
[2018-03-05 18:56] LABS: ALANINE AMINOTRANSFERASE 24 U/L (12-78); ALBUMIN 3.5 G/DL (3.4-5.0); ALBUMIN/GLOBULIN RATIO 0.9 (1.1-1.5); ALKALINE PHOSPHATASE 75 IU/L (46-116); ANION GAP 9 (8-16); ASPARTATE AMINO TRANSFERASE 18 U/L (10-37); BILIRUBIN,TOTAL 0.7 MG/DL (0.1-1.0); BLOOD UREA NITROGEN 25 MG/DL (7-18); BUN/CREATININE RATIO 14.8 (5.4-32.0); CALCIUM 8.8 MG/DL (8.5-10.1); CHLORIDE 101 MMOL/L (99-107); CREATININE 1.69 MG/DL (0.60-1.10); GLUCOSE 311 MG/DL (70-104); POTASSIUM 4.2 MMOL/L (3.5-5.1); SODIUM 134 MMOL/L (135-145); TOTAL CARBON DIOXIDE 23.8 MMOL/L (24-32); TOTAL PROTEIN 7.4 G/DL (6.4-8.2); eGFR 41 ML/MIN
[2018-03-05 21:03] VITALS: BP 134/76
== END 2018-03-05 22:14 | disposition home or self-care (01) ==
LOC: ER 18:04
DX: R07.9 Chest pain, unspecified (principal); R06.02 Shortness of breath; E11.9 Type 2 diabetes mellitus without complications; N18.9 Chronic kidney disease, unspecified; I50.9 Heart failure, unspecified; Z90.49 Acquired absence of other specified parts of digestive tract; Z88.5 Allergy status to narcotic agent; Z88.8 Allergy status to other drugs, medicaments and biological substances; Z79.82 Long term (current) use of aspirin; Z79.4 Long term (current) use of insulin; Z79.84 Long term (current) use of oral hypoglycemic drugs; Z79.899 Other long term (current) drug therapy
CPT/HCPCS: 36415; 71045; 80053; 82948; 83880; 84484; 85025; 85610; 85730; 93005; 99285

== ENCOUNTER 2018-03-06 09:55 | Outpatient (CLI) | payer MEDICARE, MEDICAID | END 2018-03-06 10:55 | disposition home or self-care (01) | LOC: WOUND CARE 09:55 → EDSTATUS 10:00 → WOUND CARE 10:55 | PROVIDERS: ATTEND Surgery | DX: T87.81 Dehiscence of amputation stump (principal); E11.622 Type 2 diabetes mellitus with other skin ulcer; L98.492 Non-pressure chronic ulcer of skin of other sites with fat layer exposed; E11.42 Type 2 diabetes mellitus with diabetic polyneuropathy; E11.65 Type 2 diabetes mellitus with hyperglycemia; E11.21 Type 2 diabetes mellitus with diabetic nephropathy; E11.52 Type 2 diabetes mellitus with diabetic peripheral angiopathy with gangrene; I96 Gangrene, not elsewhere classified; E11.22 Type 2 diabetes mellitus with diabetic chronic kidney disease; I13.0 Hypertensive heart and chronic kidney disease with heart failure and stage 1 through stage 4 chronic kidney disease, or unspecified chronic kidney disease; I50.23 Acute on chronic systolic (congestive) heart failure; N18.3 Chronic kidney disease, stage 3 (moderate); I25.10 Atherosclerotic heart disease of native coronary artery without angina pectoris; K21.9 Gastro-esophageal reflux disease without esophagitis; E78.5 Hyperlipidemia, unspecified; F32.9 Major depressive disorder, single episode, unspecified; F17.210 Nicotine dependence, cigarettes, uncomplicated; Z90.49 Acquired absence of other specified parts of digestive tract; Z79.4 Long term (current) use of insulin; Z79.899 Other long term (current) drug therapy; Z85.038 Personal history of other malignant neoplasm of large intestine; Z85.048 Personal history of other malignant neoplasm of rectum, rectosigmoid junction, and anus; Z68.25 Body mass index [BMI] 25.0-25.9, adult; Z79.01 Long term (current) use of anticoagulants; Z79.82 Long term (current) use of aspirin; Z95.0 Presence of cardiac pacemaker; Y83.5 Amputation of limb(s) as the cause of abnormal reaction of the patient, or of later complication, without mention of misadventure at the time of the procedure | CPT/HCPCS: 99215 ==

== ENCOUNTER 2018-04-10 17:04 | Inpatient (IN) | payer MEDICARE, MEDICAID ==
[~2018-04-10] VITALS: Ht 180.3 cm; Wt 84.0 kg
[2018-04-10] MEDS ORDERED: ondansetron/PF 4mg/2ml inj IV ONE (17:30)
[2018-04-10] MEDS ORDERED: normal saline 1000ML IV soln IVB ONE (17:30)
[2018-04-10 17:49] LABS: BASOPHILS # (AUTO) 0.1 X10'3 (0-0.2); EOSINOPHILS # (AUTO) 0.1 X10'3 (0-0.9); EOSINOPHILS % (AUTO) 1.2 % (0-6); HEMATOCRIT 39.5 % (42.0-52.0); HEMOGLOBIN 12.8 g/dl (14.0-17.9); LYMPHOCYTES # (AUTO) 0.9 X10'3 (1.1-4.8); LYMPHOCYTES % (AUTO) 11.5 % (21-51); MEAN CORPUSCULAR HEMOGLOBIN 29.5 PG (27.0-31.0); MEAN CORPUSCULAR HGB CONC 32.2 % (33.0-36.5); MEAN CORPUSCULAR VOLUME 91.4 FL (78-98); MEAN PLATELET VOLUME 7.9 FL (7.4-10.4); MONOCYTES # (AUTO) 0.6 X10'3 (0-0.9); MONOCYTES % (AUTO) 7.7 % (2-12); NEUTROPHILS % (AUTO) 78.6 % (42-75); PLATELET COUNT 218 X10'3 (140-440); RED BLOOD COUNT 4.33 X10'6 (4.70-6.10); RED CELL DISTRIBUTION WIDTH 14.4 % (11.5-14.5); WHITE BLOOD COUNT 7.7 X10'3 (4.5-11.0)
[2018-04-10 18:04] LABS: ALANINE AMINOTRANSFERASE 141 U/L (12-78); ALBUMIN 3.1 G/DL (3.4-5.0); ALBUMIN/GLOBULIN RATIO 0.8 (1.1-1.5); ALKALINE PHOSPHATASE 71 IU/L (46-116); ANION GAP 13 (8-16); ASPARTATE AMINO TRANSFERASE 90 U/L (10-37); BILIRUBIN,TOTAL 0.8 MG/DL (0.1-1.0); BLOOD UREA NITROGEN 53 MG/DL (7-18); CALCIUM 8.7 MG/DL (8.5-10.1); CHLORIDE 99 MMOL/L (99-107); CREATININE 2.94 MG/DL (0.60-1.10); GLUCOSE 218 MG/DL (70-104); LIPASE 64 U/L (73-393); POTASSIUM 5.1 MMOL/L (3.5-5.1); SODIUM 134 MMOL/L (135-145); TOTAL CARBON DIOXIDE 22.4 MMOL/L (24-32); TOTAL PROTEIN 7.1 G/DL (6.4-8.2); eGFR 22 ML/MIN
[2018-04-10] MEDS ORDERED: proCHLORperazine 10 MG/2 ml inj IV ONE (18:25)
[2018-04-10 19:01] LABS: CLARITY,URINE CLEAR (Clear); COLOR,URINE YELLOW (Yellow); GLUCOSE, URINE NEGATIVE (Neg); KETONES,URINE TRACE mg/dl (Neg); LEUKOCYTE ESTERASE ,URINE NEGATIVE (Neg); NITRITES, URINE NEGATIVE (Neg); OCCULT BLOOD,URINE SMALL (Neg); PH,URINE 5.5 (4.8-8.0); PROTEIN,URINE 100 mg/dl (Neg); UROBILINOGEN,URINE 0.2 E.U/dL (0.2-1.0)
[2018-04-10 19:03] LABS: UA COLLECTION TYPE CLN CATCH MIDSTREAM
[2018-04-10 19:11] LABS: BACTERIA,URINE FEW /HPF (Neg); MUCUS STRANDS NONE SEEN /LPF (Neg); RBC,URINE 0-2 /HPF (0-2); SQUAMOUS EPITHELIAL CELL,UR FEW /LPF (FEW); WBC CLUMPS,URINE FEW /HPF (NEGATIVE); WBC,URINE 0-4 /HPF (0-4)
[2018-04-10] MEDS ORDERED: acetaminophen 325mg tablet PO PRN (19:40)
[2018-04-10] MEDS ORDERED: ondansetron/PF 4mg/2ml inj IV PRN (19:40)
[2018-04-10] MEDS ORDERED: mag hydrox/Alum hydrox/simeth 30ml oral suspension PO PRN (19:40)
[2018-04-10] MEDS ORDERED: temazepam 15mg capsule PO PRN (19:55)
[2018-04-10] MEDS ORDERED: MESSAGE TO PHARMACY PO ONE (20:00)
[2018-04-10] MEDS ORDERED: dextrose ORAL solution 15 GM/59 ML bottle PO PRN ×2 (20:00)
[2018-04-10] MEDS ORDERED: dextrose 50%-water 50ml dispensing syringe IV PRN ×2 (20:00)
[2018-04-10] MEDS ORDERED: glucagon, human recombinant 1mg kit SUBCUT PRN (20:00)
[2018-04-10 20:25] LABS: HEMOGLOBIN A1C 10.8 % (4.5-6.2)
[2018-04-10] MEDS: normal saline 1000ml 1,000 ML IV SCH (20:28)
[2018-04-10] MEDS: gabapentin 300mg capsule PO SCH (20:29)
[2018-04-10] MEDS: traZODone 50mg tablet PO SCH ×3 (20:29→21:00)
[2018-04-10] MEDS: metoprolol succinate 25mg (24-HOUR) SR. Tablet PO SCH (20:31)
[2018-04-10] MEDS: heparin, porcine 5000 units/ml vial SQ SCH (20:31)
[2018-04-10] MEDS ORDERED: non-formulary drug (Ropinirole Hcl (Requip) 1 TAB) PO SCH (21:00)
[2018-04-10 21:10] VITALS: BP 163/48
[2018-04-10] MEDS ORDERED: pneumococcal 23-VAL P-sac vacc 25 mcg/0.5ml vial IMVAC ONE (21:50)
[2018-04-10] MEDS: insulin glargine (Lantus) pen - multi-dose SQ SCH (21:57)
[2018-04-10] MEDS: ROPINIRole 1mg tablet PO SCH (21:58)
[2018-04-10] MEDS: metoclopramide 5 mg/ml inj IV PRN (23:18)
[2018-04-11] VITALS (7 sets, daily range): BP systolic 118–144; BP diastolic 32–75
[2018-04-11 05:52] LABS: BASOPHILS % (AUTO) 0.5 % (0-1); EOSINOPHILS # (AUTO) 0.1 X10'3 (0-0.9); EOSINOPHILS % (AUTO) 1.2 % (0-6); HEMATOCRIT 36.6 % (42.0-52.0); HEMOGLOBIN 11.9 g/dl (14.0-17.9); LYMPHOCYTES # (AUTO) 1.1 X10'3 (1.1-4.8); LYMPHOCYTES % (AUTO) 14.3 % (21-51); MEAN CORPUSCULAR HEMOGLOBIN 29.2 PG (27.0-31.0); MEAN CORPUSCULAR HGB CONC 32.4 % (33.0-36.5); MEAN CORPUSCULAR VOLUME 90.1 FL (78-98); MONOCYTES # (AUTO) 0.8 X10'3 (0-0.9); MONOCYTES % (AUTO) 10.2 % (2-12); NEUTROPHILS # (AUTO) 5.4 X10'3 (1.8-7.7); NEUTROPHILS % (AUTO) 73.8 % (42-75); PLATELET COUNT 188 X10'3 (140-440); RED BLOOD COUNT 4.06 X10'6 (4.70-6.10); RED CELL DISTRIBUTION WIDTH 14.2 % (11.5-14.5); WHITE BLOOD COUNT 7.4 X10'3 (4.5-11.0)
[2018-04-11 06:17] LABS: ALANINE AMINOTRANSFERASE 117 U/L (12-78); ALBUMIN 2.7 G/DL (3.4-5.0); ALBUMIN/GLOBULIN RATIO 0.8 (1.1-1.5); ALKALINE PHOSPHATASE 61 IU/L (46-116); ANION GAP 8 (8-16); ASPARTATE AMINO TRANSFERASE 64 U/L (10-37); BILIRUBIN,TOTAL 0.6 MG/DL (0.1-1.0); BLOOD UREA NITROGEN 51 MG/DL (7-18); CALCIUM 8.3 MG/DL (8.5-10.1); CHLORIDE 102 MMOL/L (99-107); CREATININE 2.68 MG/DL (0.60-1.10); GLUCOSE 169 MG/DL (70-104); MAGNESIUM 2.3 MG/DL (1.5-2.4); POTASSIUM 5.4 MMOL/L (3.5-5.1); SODIUM 135 MMOL/L (135-145); TOTAL CARBON DIOXIDE 24.6 MMOL/L (24-32); TOTAL PROTEIN 6.3 G/DL (6.4-8.2); eGFR 24 ML/MIN
[2018-04-11] MEDS ORDERED: non-formulary drug (Omeprazole 1 CAP) PO SCH (08:00)
[2018-04-11] MEDS: metoprolol succinate 25mg (24-HOUR) SR. Tablet PO SCH ×2 (08:00→19:21)
[2018-04-11] MEDS: pantoprazole 40mg Tablet.DR PO SCH (08:52)
[2018-04-11] MEDS: tamsulosin 0.4mg capsule PO SCH (08:52)
[2018-04-11] MEDS: heparin, porcine 5000 units/ml vial SQ SCH ×2 (08:53→19:21)
[2018-04-11] MEDS: aspirin 81mg tablet.DR PO SCH (08:53)
[2018-04-11] MEDS: normal saline 1000ml 1,000 ML IV SCH ×2 (09:12→19:40)
[2018-04-11] MEDS ORDERED: sodium polystyrene sulfonate 15gm/60ml oral suspension PO ONE ×2 (14:40→18:55)
[2018-04-11] MEDS: insulin Lispro (HumaLOG) vial - multi-dose SQ SCH ×2 (18:52→21:00)
[2018-04-11] MEDS: ROPINIRole 1mg tablet PO SCH (20:54)
[2018-04-11] MEDS: gabapentin 300mg capsule PO SCH (20:54)
[2018-04-11] MEDS: traZODone 50mg tablet PO SCH (20:55)
[2018-04-11] MEDS: insulin glargine (Lantus) pen - multi-dose SQ SCH (21:01)
[2018-04-11 21:32] LABS: MAGNESIUM 2.2 MG/DL (1.5-2.4); POTASSIUM 4.8 MMOL/L (3.5-5.1)
[2018-04-12] VITALS (11 sets, daily range): BP systolic 87–139; BP diastolic 62–90
[2018-04-12 06:20] LABS: BASOPHILS % (AUTO) 0.5 % (0-1); EOSINOPHILS # (AUTO) 0.2 X10'3 (0-0.9); EOSINOPHILS % (AUTO) 1.9 % (0-6); HEMATOCRIT 38.7 % (42.0-52.0); HEMOGLOBIN 12.7 g/dl (14.0-17.9); LYMPHOCYTES # (AUTO) 1.6 X10'3 (1.1-4.8); MEAN CORPUSCULAR HEMOGLOBIN 29.5 PG (27.0-31.0); MEAN CORPUSCULAR HGB CONC 32.9 % (33.0-36.5); MEAN CORPUSCULAR VOLUME 89.9 FL (78-98); MEAN PLATELET VOLUME 7.8 FL (7.4-10.4); MONOCYTES % (AUTO) 12.4 % (2-12); NEUTROPHILS # (AUTO) 5.5 X10'3 (1.8-7.7); NEUTROPHILS % (AUTO) 66.2 % (42-75); PLATELET COUNT 210 X10'3 (140-440); RED CELL DISTRIBUTION WIDTH 14.3 % (11.5-14.5); WHITE BLOOD COUNT 8.4 X10'3 (4.5-11.0)
[2018-04-12 06:33] LABS: ALANINE AMINOTRANSFERASE 142 U/L (12-78); ALBUMIN/GLOBULIN RATIO 0.8 (1.1-1.5); ALKALINE PHOSPHATASE 71 IU/L (46-116); ANION GAP 12 (8-16); ASPARTATE AMINO TRANSFERASE 87 U/L (10-37); BILIRUBIN,TOTAL 0.7 MG/DL (0.1-1.0); BLOOD UREA NITROGEN 46 MG/DL (7-18); BUN/CREATININE RATIO 18.3 (5.4-32.0); CHLORIDE 103 MMOL/L (99-107); CREATININE 2.51 MG/DL (0.60-1.10); GLUCOSE 123 MG/DL (70-104); POTASSIUM 3.8 MMOL/L (3.5-5.1); SODIUM 137 MMOL/L (135-145); TOTAL CARBON DIOXIDE 22.2 MMOL/L (24-32); TOTAL PROTEIN 6.9 G/DL (6.4-8.2); eGFR 26 ML/MIN
[2018-04-12] MEDS: aspirin 81mg tablet.DR PO SCH (07:40)
[2018-04-12] MEDS: pantoprazole 40mg Tablet.DR PO SCH (07:40)
[2018-04-12] MEDS: tamsulosin 0.4mg capsule PO SCH (07:40)
[2018-04-12] MEDS: heparin, porcine 5000 units/ml vial SQ SCH ×2 (07:42→19:40)
[2018-04-12] MEDS: metoprolol succinate 25mg (24-HOUR) SR. Tablet PO SCH ×2 (07:43→20:00)
[2018-04-12] MEDS: normal saline 1000ml 1,000 ML IV SCH ×2 (09:06→21:55)
[2018-04-12] MEDS ORDERED: amiodarone 150mg/dext, iso-os 100 ML IV ONE ×2 (09:10→09:35)
[2018-04-12] MEDS: insulin Lispro (HumaLOG) vial - multi-dose SQ SCH ×3 (09:29→20:15)
[2018-04-12] MEDS: amiodarone/D5 360MG/200ML BAG 200 ML IV SCH ×2 (12:09→17:10)
[2018-04-12] MEDS ORDERED: metoprolol succinate 25mg (24-HOUR) SR. Tablet PO ONE (12:15)
[2018-04-12 13:38] LABS: MAGNESIUM 2.3 MG/DL (1.5-2.4)
[2018-04-12] MEDS ORDERED: amiodarone 200mg tablet PO SCH (20:00)
[2018-04-12] MEDS: gabapentin 300mg capsule PO SCH (20:46)
[2018-04-12] MEDS: traZODone 50mg tablet PO SCH (20:47)
[2018-04-12] MEDS: ROPINIRole 1mg tablet PO SCH (20:47)
[2018-04-12] MEDS: insulin glargine (Lantus) pen - multi-dose SQ SCH (21:00)
[2018-04-12] MEDS: metoclopramide 5 mg/ml inj IV PRN (21:44)
[2018-04-12] MEDS: morphine 2 MG/ML inj. syringe IV PRN (22:28)
[2018-04-13] VITALS (12 sets, daily range): BP systolic 98–130; BP diastolic 62–89
[2018-04-13] MEDS: amiodarone/D5 360MG/200ML BAG 200 ML IV SCH ×3 (00:06→12:43)
[2018-04-13 06:05] LABS: BASOPHILS % (AUTO) 0.2 % (0-1); EOSINOPHILS % (AUTO) 0.4 % (0-6); HEMATOCRIT 37.3 % (42.0-52.0); LYMPHOCYTES # (AUTO) 1.3 X10'3 (1.1-4.8); LYMPHOCYTES % (AUTO) 14.3 % (21-51); MEAN CORPUSCULAR HEMOGLOBIN 29.2 PG (27.0-31.0); MEAN CORPUSCULAR HGB CONC 32.2 % (33.0-36.5); MEAN CORPUSCULAR VOLUME 90.7 FL (78-98); MEAN PLATELET VOLUME 8.1 FL (7.4-10.4); MONOCYTES % (AUTO) 10.8 % (2-12); NEUTROPHILS # (AUTO) 6.6 X10'3 (1.8-7.7); NEUTROPHILS % (AUTO) 74.3 % (42-75); PLATELET COUNT 194 X10'3 (140-440); RED BLOOD COUNT 4.11 X10'6 (4.70-6.10); WHITE BLOOD COUNT 8.9 X10'3 (4.5-11.0)
[2018-04-13 06:06] LABS: ALANINE AMINOTRANSFERASE 286 U/L (12-78); ALBUMIN 2.7 G/DL (3.4-5.0); ALBUMIN/GLOBULIN RATIO 0.8 (1.1-1.5); ALKALINE PHOSPHATASE 87 IU/L (46-116); ANION GAP 13 (8-16); ASPARTATE AMINO TRANSFERASE 297 U/L (10-37); BILIRUBIN,TOTAL 0.7 MG/DL (0.1-1.0); BLOOD UREA NITROGEN 51 MG/DL (7-18); BUN/CREATININE RATIO 18.2 (5.4-32.0); CHLORIDE 101 MMOL/L (99-107); GLUCOSE 112 MG/DL (70-104); POTASSIUM 4.9 MMOL/L (3.5-5.1); SODIUM 134 MMOL/L (135-145); TOTAL CARBON DIOXIDE 20.3 MMOL/L (24-32); TOTAL PROTEIN 6.3 G/DL (6.4-8.2); eGFR 23 ML/MIN
[2018-04-13] MEDS: metoprolol succinate 25mg (24-HOUR) SR. Tablet PO SCH ×2 (07:17→20:41)
[2018-04-13] MEDS: pantoprazole 40mg Tablet.DR PO SCH (08:09)
[2018-04-13] MEDS: heparin, porcine 5000 units/ml vial SQ SCH ×2 (08:09→20:00)
[2018-04-13] MEDS: tamsulosin 0.4mg capsule PO SCH (08:09)
[2018-04-13] MEDS: aspirin 81mg tablet.DR PO SCH (08:09)
[2018-04-13] MEDS: morphine 2 MG/ML inj. syringe IV PRN (08:14)
[2018-04-13] MEDS: normal saline 1000ml 1,000 ML IV SCH ×2 (10:06→22:52)
[2018-04-13] MEDS ORDERED: methylPREDNISolone sod succ 125mg/2ml vial IV ONE ×2 (12:35→21:00)
[2018-04-13] MEDS ORDERED: diphenhydrAMINE 50 mg/ml inj IV ONE ×2 (12:35→21:00)
[2018-04-13] MEDS: ROPINIRole 1mg tablet PO SCH (20:40)
[2018-04-13] MEDS: traZODone 50mg tablet PO SCH (20:40)
[2018-04-13] MEDS: gabapentin 300mg capsule PO SCH (20:41)
[2018-04-13] MEDS: insulin glargine (Lantus) pen - multi-dose SQ SCH (21:46)
[2018-04-14] VITALS (13 sets, daily range): BP systolic 105–137; BP diastolic 65–88
[2018-04-14] MEDS: amiodarone/D5 360MG/200ML BAG 200 ML IV SCH (01:11)
[2018-04-14 05:49] LABS: BASOPHILS % (AUTO) 0 % (0-1); EOSINOPHILS % (AUTO) 0 % (0-6); HEMATOCRIT 39.2 % (42.0-52.0); HEMOGLOBIN 12.6 g/dl (14.0-17.9); LYMPHOCYTES # (AUTO) 0.3 X10'3 (1.1-4.8); LYMPHOCYTES % (AUTO) 6.3 % (21-51); MEAN CORPUSCULAR HGB CONC 32.1 % (33.0-36.5); MEAN CORPUSCULAR VOLUME 90.1 FL (78-98); MEAN PLATELET VOLUME 8.2 FL (7.4-10.4); MONOCYTES # (AUTO) 0.1 X10'3 (0-0.9); MONOCYTES % (AUTO) 1.5 % (2-12); NEUTROPHILS % (AUTO) 92.2 % (42-75); PLATELET COUNT 167 X10'3 (140-440); RED BLOOD COUNT 4.35 X10'6 (4.70-6.10); RED CELL DISTRIBUTION WIDTH 15.1 % (11.5-14.5); WHITE BLOOD COUNT 5.4 X10'3 (4.5-11.0)
[2018-04-14] MEDS ORDERED: iohexol 350MG/ML 100ml bottle IV ONE (05:59)
[2018-04-14] MEDS ORDERED: fentaNYL/PF 50MCG/1 ML 2ML syringe ONE (05:59)
[2018-04-14] MEDS ORDERED: midazolam 2 mg/2 ml injection ONE (05:59)
[2018-04-14] MEDS ORDERED: LIDOcaine 1% 30ml preserv. free vial ONE (05:59)
[2018-04-14] MEDS ORDERED: diphenhydrAMINE 50 mg/ml inj IV ONE (06:00)
[2018-04-14] MEDS ORDERED: methylPREDNISolone sod succ 125mg/2ml vial IV ONE (06:00)
[2018-04-14 06:34] LABS: ALANINE AMINOTRANSFERASE 305 U/L (12-78); ALBUMIN 2.7 G/DL (3.4-5.0); ALBUMIN/GLOBULIN RATIO 0.8 (1.1-1.5); ALKALINE PHOSPHATASE 94 IU/L (46-116); ANION GAP 19 (8-16); ASPARTATE AMINO TRANSFERASE 176 U/L (10-37); BILIRUBIN,TOTAL 0.9 MG/DL (0.1-1.0); BLOOD UREA NITROGEN 60 MG/DL (7-18); BUN/CREATININE RATIO 20.6 (5.4-32.0); CALCIUM 8.1 MG/DL (8.5-10.1); CHLORIDE 98 MMOL/L (99-107); CREATININE 2.91 MG/DL (0.60-1.10); GLUCOSE 254 MG/DL (70-104); POTASSIUM 5.5 MMOL/L (3.5-5.1); SODIUM 133 MMOL/L (135-145); TOTAL CARBON DIOXIDE 16.3 MMOL/L (24-32); TOTAL PROTEIN 6.3 G/DL (6.4-8.2); eGFR 22 ML/MIN
[2018-04-14] MEDS ORDERED: heparin 1,000unit/ml 10ml vial 10 ML ONE (06:44)
[2018-04-14] MEDS ORDERED: iohexol 350 MG/ML 50ML vial IV ONE (06:47)
[2018-04-14] MEDS ORDERED: ticagrelor 90mg tablet ONE (06:56)
[2018-04-14] MEDS ORDERED: proCHLORperazine 10 MG/2 ml inj IV PRN (07:40)
[2018-04-14] MEDS ORDERED: OXAZEpam 15mg capsule PO PRN (07:40)
[2018-04-14] MEDS ORDERED: nitroGLYCERIN 0.4mg SUBLingual tab SL PRN (07:40)
[2018-04-14] MEDS: heparin, porcine 5000 units/ml vial SQ SCH ×2 (08:00→20:00)
[2018-04-14] MEDS ORDERED: sodium polystyrene sulfonate 15gm/60ml oral suspension PO ONE (08:10)
[2018-04-14] MEDS: aspirin 81mg tablet.DR PO SCH (09:00)
[2018-04-14] MEDS: sodium bicarbonate (8.4%) inj. 100 MEQ in sodium chloride 0.45% 1,000 ML IV SCH ×2 (09:19→20:58)
[2018-04-14] MEDS: metoprolol succinate 25mg (24-HOUR) SR. Tablet PO SCH ×2 (09:20→20:37)
[2018-04-14] MEDS: tamsulosin 0.4mg capsule PO SCH (09:20)
[2018-04-14] MEDS: pantoprazole 40mg Tablet.DR PO SCH (09:20)
[2018-04-14] MEDS: insulin Lispro (HumaLOG) vial - multi-dose SQ SCH ×4 (09:25→19:30)
[2018-04-14] MEDS ORDERED: HYDROcodone/acetaminophen 5mg/325mg tablet PO PRN (10:35)
[2018-04-14] MEDS: HYDROcodone/acetaminophen 10/325mg tab PO PRN ×3 (13:01→22:15)
[2018-04-14] MEDS ORDERED: acetylcysteine 200 MG/ml 4ml vial PO ONE ×2 (13:40→14:35)
[2018-04-14] MEDS: metoclopramide 5 mg/ml inj IV PRN (20:20)
[2018-04-14] MEDS: ROPINIRole 1mg tablet PO SCH (20:33)
[2018-04-14] MEDS: gabapentin 300mg capsule PO SCH (20:37)
[2018-04-14] MEDS: traZODone 50mg tablet PO SCH (20:37)
[2018-04-14] MEDS: ticagrelor 90mg tablet PO SCH (20:46)
[2018-04-14] MEDS: acetylcysteine 200 MG/ml 4ml vial PO SCH (20:47)
[2018-04-14] MEDS: insulin glargine (Lantus) pen - multi-dose SQ SCH (22:14)
[2018-04-15] VITALS (10 sets, daily range): BP systolic 83–119; BP diastolic 62–90
[2018-04-15 06:03] LABS: BASOPHILS % (AUTO) 0 % (0-1); EOSINOPHILS # (AUTO) 0.1 X10'3 (0-0.9); EOSINOPHILS % (AUTO) 1.2 % (0-6); HEMATOCRIT 37.4 % (42.0-52.0); HEMOGLOBIN 12.1 g/dl (14.0-17.9); LYMPHOCYTES # (AUTO) 0.2 X10'3 (1.1-4.8); LYMPHOCYTES % (AUTO) 1.5 % (21-51); MEAN CORPUSCULAR HEMOGLOBIN 28.9 PG (27.0-31.0); MEAN CORPUSCULAR HGB CONC 32.5 % (33.0-36.5); MEAN PLATELET VOLUME 8.3 FL (7.4-10.4); MONOCYTES # (AUTO) 0.5 X10'3 (0-0.9); MONOCYTES % (AUTO) 4.7 % (2-12); NEUTROPHILS # (AUTO) 9.1 X10'3 (1.8-7.7); NEUTROPHILS % (AUTO) 92.6 % (42-75); PLATELET COUNT 191 X10'3 (140-440); RED CELL DISTRIBUTION WIDTH 14.6 % (11.5-14.5); WHITE BLOOD COUNT 9.9 X10'3 (4.5-11.0)
[2018-04-15] MEDS: sodium bicarbonate (8.4%) inj. 100 MEQ in sodium chloride 0.45% 1,000 ML IV SCH (06:10)
[2018-04-15 06:44] LABS: ALANINE AMINOTRANSFERASE 245 U/L (12-78); ALBUMIN 2.6 G/DL (3.4-5.0); ALBUMIN/GLOBULIN RATIO 0.7 (1.1-1.5); ALKALINE PHOSPHATASE 89 IU/L (46-116); ANION GAP 15 (8-16); ASPARTATE AMINO TRANSFERASE 83 U/L (10-37); BILIRUBIN,TOTAL 0.8 MG/DL (0.1-1.0); BLOOD UREA NITROGEN 68 MG/DL (7-18); BUN/CREATININE RATIO 23.7 (5.4-32.0); CALCIUM 7.4 MG/DL (8.5-10.1); CHLORIDE 98 MMOL/L (99-107); CREATININE 2.87 MG/DL (0.60-1.10); GLUCOSE 52 MG/DL (70-104); POTASSIUM 4.2 MMOL/L (3.5-5.1); SODIUM 135 MMOL/L (135-145); TOTAL CARBON DIOXIDE 22.3 MMOL/L (24-32); TOTAL PROTEIN 6.1 G/DL (6.4-8.2); eGFR 22 ML/MIN
[2018-04-15 06:51] LABS: NUCLEATED RED BLOOD CELLS 14 /100WBC (0-0); PLATELET ESTIMATE NORMAL; TOTAL CELLS COUNTED 100
[2018-04-15 06:53] LABS: BURR CELLS 2+; POLYCHROMASIA 1+; SCHISTOCYTES FEW
[2018-04-15] MEDS: pantoprazole 40mg Tablet.DR PO SCH (07:28)
[2018-04-15] MEDS: tamsulosin 0.4mg capsule PO SCH (07:28)
[2018-04-15] MEDS: aspirin 81mg tablet.DR PO SCH (07:29)
[2018-04-15] MEDS: ticagrelor 90mg tablet PO SCH ×2 (07:29→21:19)
[2018-04-15] MEDS: metoprolol succinate 25mg (24-HOUR) SR. Tablet PO SCH ×2 (07:30→20:00)
[2018-04-15] MEDS: heparin, porcine 5000 units/ml vial SQ SCH ×2 (07:33→21:20)
[2018-04-15] MEDS: magnesium 1gm/100ml D5W IVPB 100 ML IV SCH ×2 (09:11→09:49)
[2018-04-15] MEDS ORDERED: amiodarone 200mg tablet PO SCH (10:21)
[2018-04-15] MEDS: HYDROcodone/acetaminophen 10/325mg tab PO PRN ×2 (11:12→17:38)
[2018-04-15 11:13] LABS: NUCLEATED RED BLOOD CELLS 2 /100WBC (0-0); TOTAL CELLS COUNTED 100
[2018-04-15 11:15] LABS: ANISOCYTOSIS 1+; BURR CELLS 2+; PLATELET ESTIMATE NORMAL; POLYCHROMASIA 1+; SCHISTOCYTES FEW
[2018-04-15] MEDS: amiodarone/D5 360MG/200ML BAG 200 ML IV SCH ×2 (11:21→18:39)
[2018-04-15] MEDS ORDERED: amiodarone 150mg/dext, iso-os 100 ML IV ONE (11:25)
[2018-04-15] MEDS: insulin Lispro (HumaLOG) vial - multi-dose SQ SCH ×2 (14:00→20:02)
[2018-04-15] MEDS: acetylcysteine 200 MG/ml 4ml vial PO SCH ×2 (14:02→21:20)
[2018-04-15] MEDS: ondansetron/PF 4mg/2ml inj IV PRN (17:38)
[2018-04-15] MEDS: metoprolol tartrate 50mg tablet PO SCH (20:00)
[2018-04-15] MEDS: gabapentin 300mg capsule PO SCH (21:19)
[2018-04-15] MEDS: ROPINIRole 1mg tablet PO SCH (21:19)
[2018-04-15] MEDS: traZODone 50mg tablet PO SCH (21:19)
[2018-04-15] MEDS: insulin glargine (Lantus) pen - multi-dose SQ SCH (22:00)
[2018-04-16] MEDS: sodium bicarbonate (8.4%) inj. 100 MEQ in sodium chloride 0.45% 1,000 ML IV SCH ×4 (00:17→21:08)
[2018-04-16 02:00] VITALS: BP 93/68
[2018-04-16] MEDS: HYDROcodone/acetaminophen 10/325mg tab PO PRN ×3 (03:14→21:03)
[2018-04-16] MEDS: metoclopramide 5 mg/ml inj IV PRN (04:06)
[2018-04-16] MEDS: magnesium hydroxide 30ml (MOM) UD suspension PO PRN (04:14)
[2018-04-16 06:00] VITALS: BP 94/64
[2018-04-16] MEDS ORDERED: amiodarone 200mg tablet PO SCH ×3 (06:00→20:00)
[2018-04-16] MEDS: ondansetron/PF 4mg/2ml inj IV PRN (06:49)
[2018-04-16] MEDS: pantoprazole 40mg Tablet.DR PO SCH (06:54)
[2018-04-16] MEDS: amiodarone 200mg tablet PO SCH ×2 (06:54→19:09)
[2018-04-16 07:17] LABS: ALBUMIN 2.5 G/DL (3.4-5.0); ANION GAP 13 (8-16); BLOOD UREA NITROGEN 78 MG/DL (7-18); BUN/CREATININE RATIO 23.8 (5.4-32.0); CALCIUM 7.5 MG/DL (8.5-10.1); CHLORIDE 96 MMOL/L (99-107); CREATININE 3.28 MG/DL (0.60-1.10); GLUCOSE 90 MG/DL (70-104); POTASSIUM 4.5 MMOL/L (3.5-5.1); SODIUM 132 MMOL/L (135-145); TOTAL CARBON DIOXIDE 22.9 MMOL/L (24-32); eGFR 19 ML/MIN
[2018-04-16] MEDS: metoprolol tartrate 50mg tablet PO SCH (08:00)
[2018-04-16] MEDS: metoprolol succinate 25mg (24-HOUR) SR. Tablet PO SCH ×2 (08:00→17:54)
[2018-04-16] MEDS: aspirin 81mg tablet.DR PO SCH (08:02)
[2018-04-16] MEDS: tamsulosin 0.4mg capsule PO SCH (08:02)
[2018-04-16] MEDS: ticagrelor 90mg tablet PO SCH ×2 (08:02→19:08)
[2018-04-16] MEDS: heparin, porcine 5000 units/ml vial SQ SCH ×2 (08:03→19:09)
[2018-04-16] MEDS: acetylcysteine 200 MG/ml 4ml vial PO SCH ×2 (08:06→19:08)
[2018-04-16] MEDS: insulin Lispro (HumaLOG) vial - multi-dose SQ SCH ×3 (08:38→19:11)
[2018-04-16 09:40] LABS: ALBUMIN 2.5 G/DL (3.4-5.0); ANION GAP 14 (8-16); BLOOD UREA NITROGEN 81 MG/DL (7-18); BUN/CREATININE RATIO 24.6 (5.4-32.0); CALCIUM 7.4 MG/DL (8.5-10.1); CHLORIDE 96 MMOL/L (99-107); CREATININE 3.29 MG/DL (0.60-1.10); GLUCOSE 134 MG/DL (70-104); MAGNESIUM 2.7 MG/DL (1.5-2.4); POTASSIUM 4.6 MMOL/L (3.5-5.1); SODIUM 131 MMOL/L (135-145); TOTAL CARBON DIOXIDE 20.7 MMOL/L (24-32); eGFR 19 ML/MIN
[2018-04-16 11:00] VITALS: BP 94/67
[2018-04-16 15:00] VITALS: BP 111/64
[2018-04-16 19:00] VITALS: BP 125/66
[2018-04-16] MEDS: gabapentin 300mg capsule PO SCH (21:02)
[2018-04-16] MEDS: traZODone 50mg tablet PO SCH (21:03)
[2018-04-16] MEDS: ROPINIRole 1mg tablet PO SCH (21:04)
[2018-04-16] MEDS: insulin glargine (Lantus) pen - multi-dose SQ SCH (21:11)
[2018-04-16 23:00] VITALS: BP 115/65
[2018-04-17] MEDS: HYDROcodone/acetaminophen 10/325mg tab PO PRN ×4 (01:27→21:29)
[2018-04-17 03:00] VITALS: BP_SYST 127; BP_SYST 133; BP_DIAS 61; BP_DIAS 62
[2018-04-17 06:00] VITALS: BP 136/68
[2018-04-17 06:36] LABS: MONOCYTES # (AUTO) 0.6 X10'3 (0-0.9)
[2018-04-17 06:44] LABS: BASOPHILS % (AUTO) 0.1 % (0-1); EOSINOPHILS % (AUTO) 0 % (0-6); HEMATOCRIT 38.6 % (42.0-52.0); HEMOGLOBIN 12.4 g/dl (14.0-17.9); LYMPHOCYTES # (AUTO) 0.2 X10'3 (1.1-4.8); LYMPHOCYTES % (AUTO) 2.5 % (21-51); MEAN CORPUSCULAR HEMOGLOBIN 28.7 PG (27.0-31.0); MEAN CORPUSCULAR HGB CONC 32.2 % (33.0-36.5); MEAN CORPUSCULAR VOLUME 89.1 FL (78-98); MEAN PLATELET VOLUME 8.5 FL (7.4-10.4); NEUTROPHILS # (AUTO) 8.3 X10'3 (1.8-7.7); NEUTROPHILS % (AUTO) 90.4 % (42-75); PLATELET COUNT 165 X10'3 (140-440); RED BLOOD COUNT 4.33 X10'6 (4.70-6.10); RED CELL DISTRIBUTION WIDTH 15.2 % (11.5-14.5); WHITE BLOOD COUNT 9.1 X10'3 (4.5-11.0)
[2018-04-17 06:54] LABS: ALANINE AMINOTRANSFERASE 490 U/L (12-78); ALBUMIN 2.6 G/DL (3.4-5.0); ALBUMIN/GLOBULIN RATIO 0.8 (1.1-1.5); ALKALINE PHOSPHATASE 124 IU/L (46-116); ANION GAP 11 (8-16); ASPARTATE AMINO TRANSFERASE 340 U/L (10-37); BILIRUBIN,TOTAL 1.1 MG/DL (0.1-1.0); BLOOD UREA NITROGEN 81 MG/DL (7-18); BUN/CREATININE RATIO 25.1 (5.4-32.0); CALCIUM 7.4 MG/DL (8.5-10.1); CHLORIDE 96 MMOL/L (99-107); CREATININE 3.23 MG/DL (0.60-1.10); GLUCOSE 144 MG/DL (70-104); MAGNESIUM 2.7 MG/DL (1.5-2.4); POTASSIUM 3.7 MMOL/L (3.5-5.1); SODIUM 132 MMOL/L (135-145); TOTAL CARBON DIOXIDE 24.9 MMOL/L (24-32); TOTAL PROTEIN 5.8 G/DL (6.4-8.2); eGFR 19 ML/MIN
[2018-04-17 07:10] LABS: NUCLEATED RED BLOOD CELLS 31 /100WBC (0-0); PLATELET ESTIMATE NORMAL; TOTAL CELLS COUNTED 100
[2018-04-17 07:11] LABS: ANISOCYTOSIS 1+; POLYCHROMASIA 1+; SCHISTOCYTES FEW
[2018-04-17] MEDS: pantoprazole 40mg Tablet.DR PO SCH (07:29)
[2018-04-17] MEDS: amiodarone 200mg tablet PO SCH ×2 (07:29→20:20)
[2018-04-17] MEDS: metoprolol succinate 25mg (24-HOUR) SR. Tablet PO SCH ×2 (07:29→20:22)
[2018-04-17] MEDS: tamsulosin 0.4mg capsule PO SCH (07:29)
[2018-04-17] MEDS: aspirin 81mg tablet.DR PO SCH (07:29)
[2018-04-17] MEDS: ticagrelor 90mg tablet PO SCH ×2 (07:29→20:20)
[2018-04-17] MEDS: acetylcysteine 200 MG/ml 4ml vial PO SCH (07:32)
[2018-04-17] MEDS: heparin, porcine 5000 units/ml vial SQ SCH ×2 (07:34→20:20)
[2018-04-17] MEDS: insulin Lispro (HumaLOG) vial - multi-dose SQ SCH ×3 (08:27→18:42)
[2018-04-17] MEDS: sodium bicarbonate (8.4%) inj. 100 MEQ in sodium chloride 0.45% 1,000 ML IV SCH ×2 (09:51→21:29)
[2018-04-17 11:00] VITALS: BP 138/70
[2018-04-17] MEDS ORDERED: potassium Cl 20 mEq SR tablet PO STA (11:05)
[2018-04-17] MEDS ORDERED: metoprolol succinate 25mg (24-HOUR) SR. Tablet PO ONE (11:05)
[2018-04-17 15:00] VITALS: BP 115/99
[2018-04-17 19:00] VITALS: BP 123/63
[2018-04-17] MEDS: gabapentin 300mg capsule PO SCH (20:20)
[2018-04-17] MEDS: traZODone 50mg tablet PO SCH (20:21)
[2018-04-17] MEDS: ROPINIRole 1mg tablet PO SCH (20:21)
[2018-04-17] MEDS: insulin glargine (Lantus) pen - multi-dose SQ SCH (21:00)
[2018-04-17] MEDS ORDERED: tamsulosin 0.4mg capsule PO SCH (21:00)
[2018-04-17 23:00] VITALS: BP 98/73
[2018-04-18 03:00] VITALS: BP 110/72
[2018-04-18] MEDS: ondansetron/PF 4mg/2ml inj IV PRN ×2 (03:09→13:37)
[2018-04-18] MEDS: HYDROcodone/acetaminophen 10/325mg tab PO PRN ×4 (03:10→19:12)
[2018-04-18 06:00] VITALS: BP 112/73
[2018-04-18 06:13] LABS: BASOPHILS # (AUTO) 0.1 X10'3 (0-0.2); BASOPHILS % (AUTO) 1.3 % (0-1); EOSINOPHILS # (AUTO) 0.1 X10'3 (0-0.9); EOSINOPHILS % (AUTO) 1.7 % (0-6); HEMATOCRIT 38.7 % (42.0-52.0); HEMOGLOBIN 12.3 g/dl (14.0-17.9); LYMPHOCYTES # (AUTO) 0.5 X10'3 (1.1-4.8); LYMPHOCYTES % (AUTO) 6.5 % (21-51); MEAN CORPUSCULAR HEMOGLOBIN 28.4 PG (27.0-31.0); MEAN CORPUSCULAR HGB CONC 31.7 % (33.0-36.5); MEAN CORPUSCULAR VOLUME 89.5 FL (78-98); MEAN PLATELET VOLUME 8.4 FL (7.4-10.4); MONOCYTES # (AUTO) 0.4 X10'3 (0-0.9); MONOCYTES % (AUTO) 5.7 % (2-12); NEUTROPHILS # (AUTO) 5.9 X10'3 (1.8-7.7); NEUTROPHILS % (AUTO) 84.8 % (42-75); PLATELET COUNT 154 X10'3 (140-440); RED BLOOD COUNT 4.32 X10'6 (4.70-6.10); RED CELL DISTRIBUTION WIDTH 15.1 % (11.5-14.5)
[2018-04-18 06:25] LABS: ALBUMIN 2.5 G/DL (3.4-5.0); ANION GAP 7 (8-16); BLOOD UREA NITROGEN 79 MG/DL (7-18); BUN/CREATININE RATIO 24.4 (5.4-32.0); CALCIUM 7.3 MG/DL (8.5-10.1); CHLORIDE 96 MMOL/L (99-107); CREATININE 3.24 MG/DL (0.60-1.10); GLUCOSE 126 MG/DL (70-104); MAGNESIUM 2.8 MG/DL (1.5-2.4); POTASSIUM 4.8 MMOL/L (3.5-5.1); SODIUM 131 MMOL/L (135-145); TOTAL CARBON DIOXIDE 27.9 MMOL/L (24-32); TROPONIN I 0.12 NG/ML (0.0-0.05); eGFR 19 ML/MIN
[2018-04-18 06:33] LABS: NUCLEATED RED BLOOD CELLS 17 /100WBC (0-0); TOTAL CELLS COUNTED 100
[2018-04-18 06:34] LABS: ELLIPTOCYTES 1+; PLATELET ESTIMATE NORMAL; POLYCHROMASIA 1+; SCHISTOCYTES FEW
[2018-04-18] MEDS: metoprolol succinate 25mg (24-HOUR) SR. Tablet PO SCH ×2 (07:17→19:09)
[2018-04-18] MEDS: pantoprazole 40mg Tablet.DR PO SCH (07:17)
[2018-04-18] MEDS: aspirin 81mg tablet.DR PO SCH (07:17)
[2018-04-18] MEDS: amiodarone 200mg tablet PO SCH ×2 (07:17→19:10)
[2018-04-18] MEDS: ticagrelor 90mg tablet PO SCH ×2 (07:17→19:10)
[2018-04-18] MEDS: heparin, porcine 5000 units/ml vial SQ SCH ×2 (07:18→19:10)
[2018-04-18] MEDS: tamsulosin 0.4mg capsule PO SCH (07:18)
[2018-04-18 11:00] VITALS: BP 100/66
[2018-04-18 11:13] LABS: PHOSPHORUS 4.8 MG/DL (2.3-4.5)
[2018-04-18] MEDS ORDERED: escitalopram 20mg tablet PO SCH (11:15)
[2018-04-18] MEDS: citalopram 20mg tablet PO SCH (11:19)
[2018-04-18] MEDS: insulin Lispro (HumaLOG) vial - multi-dose SQ SCH ×2 (13:00→18:39)
[2018-04-18 15:00] VITALS: BP 95/68
[2018-04-18] MEDS: metoclopramide 5 mg/ml inj IV PRN (15:48)
[2018-04-18 18:58] VITALS: BP 100/66
[2018-04-18] MEDS: traZODone 50mg tablet PO SCH (20:45)
[2018-04-18] MEDS: ROPINIRole 1mg tablet PO SCH (20:45)
[2018-04-18] MEDS: gabapentin 300mg capsule PO SCH (20:45)
[2018-04-18] MEDS: docusate sod 100mg capsule PO SCH (20:45)
[2018-04-18 23:00] VITALS: BP 96/65
[2018-04-19 03:00] VITALS: BP 111/59
[2018-04-19 06:04] LABS: BASOPHILS % (AUTO) 0.1 % (0-1); EOSINOPHILS # (AUTO) 0.2 X10'3 (0-0.9); EOSINOPHILS % (AUTO) 2.3 % (0-6); HEMATOCRIT 36.2 % (42.0-52.0); HEMOGLOBIN 11.7 g/dl (14.0-17.9); LYMPHOCYTES # (AUTO) 0.4 X10'3 (1.1-4.8); LYMPHOCYTES % (AUTO) 5.5 % (21-51); MEAN CORPUSCULAR HEMOGLOBIN 28.7 PG (27.0-31.0); MEAN CORPUSCULAR HGB CONC 32.4 % (33.0-36.5); MEAN CORPUSCULAR VOLUME 88.6 FL (78-98); MEAN PLATELET VOLUME 8.8 FL (7.4-10.4); MONOCYTES # (AUTO) 0.6 X10'3 (0-0.9); MONOCYTES % (AUTO) 7.4 % (2-12); NEUTROPHILS # (AUTO) 6.7 X10'3 (1.8-7.7); NEUTROPHILS % (AUTO) 84.7 % (42-75); PLATELET COUNT 170 X10'3 (140-440); RED BLOOD COUNT 4.09 X10'6 (4.70-6.10); RED CELL DISTRIBUTION WIDTH 15.2 % (11.5-14.5); WHITE BLOOD COUNT 7.9 X10'3 (4.5-11.0)
[2018-04-19 06:23] LABS: ALANINE AMINOTRANSFERASE 327 U/L (12-78); ALBUMIN 2.4 G/DL (3.4-5.0); ALBUMIN/GLOBULIN RATIO 0.8 (1.1-1.5); ALKALINE PHOSPHATASE 140 IU/L (46-116); ANION GAP 7 (8-16); ASPARTATE AMINO TRANSFERASE 118 U/L (10-37); BILIRUBIN,TOTAL 1.3 MG/DL (0.1-1.0); BLOOD UREA NITROGEN 79 MG/DL (7-18); BUN/CREATININE RATIO 24.5 (5.4-32.0); CALCIUM 7.1 MG/DL (8.5-10.1); CHLORIDE 95 MMOL/L (99-107); CREATININE 3.22 MG/DL (0.60-1.10); GLUCOSE 115 MG/DL (70-104); MAGNESIUM 2.8 MG/DL (1.5-2.4); PHOSPHORUS 4.7 MG/DL (2.3-4.5); POTASSIUM 4.8 MMOL/L (3.5-5.1); SODIUM 130 MMOL/L (135-145); TOTAL CARBON DIOXIDE 27.6 MMOL/L (24-32); TOTAL PROTEIN 5.6 G/DL (6.4-8.2); eGFR 19 ML/MIN
[2018-04-19 06:41] LABS: EOSINOPHILS % (MANUAL) 1 % (0-6); LYMPHOCYTES % (MANUAL) 5 % (21-51); MONOCYTES % (MANUAL) 5 % (2-12); NEUTROPHILS % (MANUAL) 89 % (42-75); NUCLEATED RED BLOOD CELLS 14 /100WBC (0-0); PLATELET ESTIMATE NORMAL; TOTAL CELLS COUNTED 100
[2018-04-19 06:42] LABS: ANISOCYTOSIS 1+; TARGET CELLS FEW
[2018-04-19 07:00] VITALS: BP 94/69
[2018-04-19] MEDS: metoprolol succinate 25mg (24-HOUR) SR. Tablet PO SCH ×2 (09:26→20:34)
[2018-04-19] MEDS: amiodarone 200mg tablet PO SCH ×2 (09:27→20:33)
[2018-04-19] MEDS: tamsulosin 0.4mg capsule PO SCH (09:27)
[2018-04-19] MEDS: aspirin 81mg tablet.DR PO SCH (09:27)
[2018-04-19] MEDS: citalopram 20mg tablet PO SCH (09:28)
[2018-04-19] MEDS: ticagrelor 90mg tablet PO SCH ×2 (09:28→20:33)
[2018-04-19] MEDS: pantoprazole 40mg Tablet.DR PO SCH (09:28)
[2018-04-19] MEDS: heparin, porcine 5000 units/ml vial SQ SCH ×2 (09:32→20:34)
[2018-04-19 11:00] VITALS: BP 100/68
[2018-04-19] MEDS: insulin Lispro (HumaLOG) vial - multi-dose SQ SCH ×2 (13:14→18:55)
[2018-04-19] MEDS ORDERED: furosemide 20MG tablet PO ONE (14:30)
[2018-04-19 15:00] VITALS: BP 104/78
[2018-04-19 19:00] VITALS: BP 125/83
[2018-04-19] MEDS: docusate sod 100mg capsule PO SCH (20:34)
[2018-04-19] MEDS: traZODone 50mg tablet PO SCH (20:34)
[2018-04-19] MEDS: gabapentin 300mg capsule PO SCH (20:34)
[2018-04-19] MEDS: ROPINIRole 1mg tablet PO SCH (20:35)
[2018-04-19 23:00] VITALS: BP 92/61
[2018-04-20] VITALS (14 sets, daily range): BP systolic 76–108; BP diastolic 48–70
[2018-04-20] MEDS: HYDROcodone/acetaminophen 10/325mg tab PO PRN ×2 (05:46→22:42)
[2018-04-20 06:16] LABS: PHOSPHORUS 4.4 MG/DL (2.3-4.5)
[2018-04-20] MEDS: aspirin 81mg tablet.DR PO SCH (07:29)
[2018-04-20] MEDS: citalopram 20mg tablet PO SCH (07:29)
[2018-04-20] MEDS: pantoprazole 40mg Tablet.DR PO SCH (07:30)
[2018-04-20] MEDS: metoprolol succinate 25mg (24-HOUR) SR. Tablet PO SCH ×2 (07:30→20:00)
[2018-04-20] MEDS: amiodarone 200mg tablet PO SCH ×2 (07:31→22:43)
[2018-04-20] MEDS: ticagrelor 90mg tablet PO SCH ×2 (07:31→22:43)
[2018-04-20] MEDS: tamsulosin 0.4mg capsule PO SCH (07:32)
[2018-04-20] MEDS: heparin, porcine 5000 units/ml vial SQ SCH ×2 (07:32→22:57)
[2018-04-20] MEDS: magnesium hydroxide 30ml (MOM) UD suspension PO PRN (07:32)
[2018-04-20 07:39] LABS: ALANINE AMINOTRANSFERASE 273 U/L (12-78); ALBUMIN 2.4 G/DL (3.4-5.0); ALBUMIN/GLOBULIN RATIO 0.7 (1.1-1.5); ALKALINE PHOSPHATASE 122 IU/L (46-116); ANION GAP 6 (8-16); ASPARTATE AMINO TRANSFERASE 82 U/L (10-37); BILIRUBIN,TOTAL 1.7 MG/DL (0.1-1.0); BLOOD UREA NITROGEN 68 MG/DL (7-18); BUN/CREATININE RATIO 21.9 (5.4-32.0); CALCIUM 7.8 MG/DL (8.5-10.1); CHLORIDE 94 MMOL/L (99-107); CREATININE 3.11 MG/DL (0.60-1.10); GLUCOSE 148 MG/DL (70-104); POTASSIUM 4.6 MMOL/L (3.5-5.1); SODIUM 129 MMOL/L (135-145); TOTAL CARBON DIOXIDE 28.7 MMOL/L (24-32); TOTAL PROTEIN 5.7 G/DL (6.4-8.2); eGFR 20 ML/MIN
[2018-04-20] MEDS: insulin Lispro (HumaLOG) vial - multi-dose SQ SCH (07:48)
[2018-04-20] MEDS ORDERED: furosemide 40mg tablet PO SCH (08:00)
[2018-04-20] MEDS ORDERED: normal saline 1000ml 1,000 ML IVB ONE (15:44)
[2018-04-20] MEDS: ondansetron/PF 4mg/2ml inj IV PRN (16:25)
[2018-04-20] MEDS: normal saline 1000ml 1,000 ML IV SCH ×2 (17:50→22:45)
[2018-04-20] MEDS: ROPINIRole 1mg tablet PO SCH (21:00)
[2018-04-20] MEDS: docusate sod 100mg capsule PO SCH (22:42)
[2018-04-20] MEDS: gabapentin 300mg capsule PO SCH (22:43)
[2018-04-20] MEDS: traZODone 50mg tablet PO SCH (22:43)
[2018-04-20] MEDS ORDERED: NORepinephrine 8mg/ 250ml NS 250 ML IV ONE (23:26)
[2018-04-21] VITALS (15 sets, daily range): BP systolic 64–96; BP diastolic 48–63
[2018-04-21] MEDS ORDERED: albumin (human) 25% 100ml IV 100 ML IV ONE (00:05)
[2018-04-21] MEDS: HYDROcodone/acetaminophen 10/325mg tab PO PRN (04:39)
[2018-04-21 06:03] LABS: BASOPHILS % (AUTO) 0 % (0-1); EOSINOPHILS % (AUTO) 0.3 % (0-6); HEMATOCRIT 38.5 % (42.0-52.0); HEMOGLOBIN 12.2 g/dl (14.0-17.9); LYMPHOCYTES # (AUTO) 0.3 X10'3 (1.1-4.8); LYMPHOCYTES % (AUTO) 1.7 % (21-51); MEAN CORPUSCULAR HEMOGLOBIN 28.4 PG (27.0-31.0); MEAN CORPUSCULAR HGB CONC 31.7 % (33.0-36.5); MEAN CORPUSCULAR VOLUME 89.4 FL (78-98); MEAN PLATELET VOLUME 8.1 FL (7.4-10.4); MONOCYTES # (AUTO) 0.9 X10'3 (0-0.9); MONOCYTES % (AUTO) 5.5 % (2-12); NEUTROPHILS # (AUTO) 14.3 X10'3 (1.8-7.7); NEUTROPHILS % (AUTO) 92.5 % (42-75); PLATELET COUNT 184 X10'3 (140-440); RED BLOOD COUNT 4.31 X10'6 (4.70-6.10); RED CELL DISTRIBUTION WIDTH 15.7 % (11.5-14.5); WHITE BLOOD COUNT 15.4 X10'3 (4.5-11.0)
[2018-04-21 06:26] LABS: ALANINE AMINOTRANSFERASE 177 U/L (12-78); ALBUMIN 2.9 G/DL (3.4-5.0); ALKALINE PHOSPHATASE 93 IU/L (46-116); ANION GAP 8 (8-16); ASPARTATE AMINO TRANSFERASE 48 U/L (10-37); BILIRUBIN,TOTAL 1.9 MG/DL (0.1-1.0); BLOOD UREA NITROGEN 71 MG/DL (7-18); CALCIUM 7.6 MG/DL (8.5-10.1); CHLORIDE 94 MMOL/L (99-107); CREATININE 2.96 MG/DL (0.60-1.10); GLUCOSE 196 MG/DL (70-104); MAGNESIUM 2.4 MG/DL (1.5-2.4); PHOSPHORUS 3.8 MG/DL (2.3-4.5); POTASSIUM 4.7 MMOL/L (3.5-5.1); SODIUM 131 MMOL/L (135-145); TOTAL CARBON DIOXIDE 29.2 MMOL/L (24-32); TOTAL PROTEIN 5.7 G/DL (6.4-8.2); eGFR 21 ML/MIN
[2018-04-21 06:44] LABS: ANISOCYTOSIS 1+; PLATELET ESTIMATE NORMAL
[2018-04-21 06:45] LABS: POLYCHROMASIA FEW; SCHISTOCYTES FEW; TARGET CELLS FEW
[2018-04-21] MEDS ORDERED: furosemide 40mg tablet PO SCH (08:00)
== END 2018-04-21 07:35 | disposition short-term general hospital (02) | DRG 246 ==
LOC: ER 17:04 → ED HOLD 19:36 → ORTHO 4S 21:00 → PCU 3S 04-12 10:20 → CICU 2S 04-13 11:31 → PCU 3S 04-13 17:15 → CICU 2S 04-20 20:54
PROVIDERS: ADMIT Internal Medicine; ATTEND Internal Medicine Critical Care Medicine
PROC: 4B02XTZ Measurement of Cardiac Defibrillator, External Approach (ICD-10-PCS; 2018-04-12)
PROC: 5A12012 Performance of Cardiac Output, Single, Manual (ICD-10-PCS; 2018-04-13)
PROC: 4A023N7 Measurement of Cardiac Sampling and Pressure, Left Heart, Percutaneous Approach (ICD-10-PCS; principal; 2018-04-14)
PROC: 027034Z Dilation of Coronary Artery, One Artery with Drug-eluting Intraluminal Device, Percutaneous Approach (ICD-10-PCS; 2018-04-14)
PROC: B2151ZZ Fluoroscopy of Left Heart using Low Osmolar Contrast (ICD-10-PCS; 2018-04-14)
PROC: B2111ZZ Fluoroscopy of Multiple Coronary Arteries using Low Osmolar Contrast (ICD-10-PCS; 2018-04-14)
PROC: 5A09357 Assistance with Respiratory Ventilation, Less than 24 Consecutive Hours, Continuous Positive Airway Pressure (ICD-10-PCS; 2018-04-21)
DX: I13.0 Hypertensive heart and chronic kidney disease with heart failure and stage 1 through stage 4 chronic kidney disease, or unspecified chronic kidney disease (principal); I50.23 Acute on chronic systolic (congestive) heart failure; E87.2 Acidosis; N17.9 Acute kidney failure, unspecified; I47.2 Ventricular tachycardia; G93.40 Encephalopathy, unspecified; N18.4 Chronic kidney disease, stage 4 (severe); E87.1 Hypo-osmolality and hyponatremia; I42.9 Cardiomyopathy, unspecified; I25.10 Atherosclerotic heart disease of native coronary artery without angina pectoris; G47.30 Sleep apnea, unspecified; I95.9 Hypotension, unspecified; Z66 Do not resuscitate; N14.1 Nephropathy induced by other drugs, medicaments and biological substances; T50.8X5A Adverse effect of diagnostic agents, initial encounter; N30.20 Other chronic cystitis without hematuria; E87.5 Hyperkalemia; E86.0 Dehydration; E11.21 Type 2 diabetes mellitus with diabetic nephropathy; E11.22 Type 2 diabetes mellitus with diabetic chronic kidney disease; F32.9 Major depressive disorder, single episode, unspecified; G89.4 Chronic pain syndrome; E78.5 Hyperlipidemia, unspecified; Z60.2 Problems related to living alone; N32.0 Bladder-neck obstruction; I27.20 Pulmonary hypertension, unspecified; I34.0 Nonrheumatic mitral (valve) insufficiency; Z88.5 Allergy status to narcotic agent; Z93.3 Colostomy status; Z91.041 Radiographic dye allergy status; Z89.512 Acquired absence of left leg below knee; Z95.810 Presence of automatic (implantable) cardiac defibrillator; Z79.84 Long term (current) use of oral hypoglycemic drugs; Z79.82 Long term (current) use of aspirin; Z85.038 Personal history of other malignant neoplasm of large intestine; Z85.048 Personal history of other malignant neoplasm of rectum, rectosigmoid junction, and anus; Z82.49 Family history of ischemic heart disease and other diseases of the circulatory system; Y92.89 Other specified places as the place of occurrence of the external cause; N18.9 Chronic kidney disease, unspecified
CPT/HCPCS: 93306; 93458; 96361; 96374; 96375; 99285; C9600; 36415; 70450; 71045; 74176; 80048; 80053; 81001; 82140; 82948; 83036; 83690; 83735; 83880; 84100; 84132; 84484; 85025; 87070; 93005; 94660; 94760; 97110; 97116; 97530; 99152; A4620; A6257; C1760; C1769; C1874; G0378; J0282; J0780; J1200; J1644; J1815; J2250; J2270; J2405; J2765; J2930; J3010; J3490; J7030; P9047; Q9967

== ENCOUNTER → 2019-07-02 | Day surgery (SDC) | payer MEDICARE, MEDICAID ==
[~2019-07-02] VITALS: Ht 162.6 cm; Wt 83.9 kg
[2019-07-02] VITALS (8 sets, daily range): BP systolic 113–171; BP diastolic 67–107
[~2019-07-02] MED LIST changes: +AMIO200T61 PO; +BACL10TA PO; -CITA40TA22 PO; +FURO-149 PO; -FURO-150 PO; +LIDO1ADH67 TOP; +LIDOcaine 1% W/epiNEPHrine 1:100,000 20ml vial ONE; -MAGN296S50 PO; +MAGN296S70 PO; -NITR0.4T48 PO; -OXYB5TAB11 PO; +OXYB5TAB16 PO; +OXYC-150 PO; -OXYC10TA57 PO; +PANT20TA3 PO; -PER10325T PO; +POTA8CAP20 PO; -POTA8CAP9 PO; +SIMV-45; -SIMV40TA4; -TRAZ-218 PO; +TRAZ-251 PO; -ZOLP10TA PO; +[UNRECOGNIZED DRUG - CODE] IV; +ceFAZolin 1000mg inj ONE; +diphenhydrAMINE 50 mg/ml inj ONE; +fentaNYL/PF 50MCG/1 ML 2ML syringe ONE; +hydrocortisone sod succ/PF 100mg/2ml inj. ONE; +iohexol 350MG/ML 100ml bottle IV ONE; +midazolam 2 mg/2 ml injection ONE; +normal saline 1,000 ML IV SCH; +normal saline 1000ml 1,000 ML IV SCH; +proCHLORperazine 10 MG/2 ml inj ONE; +vancomycin 1,000mg inj ONE
[2019-07-02 09:54] LABS: BASOPHILS # (AUTO) 0.1 X10'3 (0-0.2); BASOPHILS % (AUTO) 0.6 % (0-1); EOSINOPHILS # (AUTO) 0.3 X10'3 (0-0.9); EOSINOPHILS % (AUTO) 3.6 % (0-6); HEMATOCRIT 39.3 % (42.0-52.0); LYMPHOCYTES # (AUTO) 1.1 X10'3 (1.1-4.8); LYMPHOCYTES % (AUTO) 12.3 % (21-51); MEAN CORPUSCULAR HEMOGLOBIN 28.1 PG (27.0-31.0); MEAN CORPUSCULAR VOLUME 85.3 FL (78-98); MEAN PLATELET VOLUME 6.8 FL (7.4-10.4); MONOCYTES # (AUTO) 0.7 X10'3 (0-0.9); MONOCYTES % (AUTO) 7.6 % (2-12); NEUTROPHILS # (AUTO) 6.7 X10'3 (1.8-7.7); NEUTROPHILS % (AUTO) 75.9 % (42-75); PLATELET COUNT 355 X10'3 (140-440); RED BLOOD COUNT 4.61 X10'6 (4.70-6.10); RED CELL DISTRIBUTION WIDTH 16.8 % (11.5-14.5); WHITE BLOOD COUNT 8.9 X10'3 (4.5-11.0)
[2019-07-02 10:24] LABS: ALBUMIN 3.7 G/DL (3.4-5.0); ANION GAP 11 (8-16); BLOOD UREA NITROGEN 53 MG/DL (7-18); BUN/CREATININE RATIO 27.2 (5.4-32.0); CHLORIDE 100 MMOL/L (99-107); CREATININE 1.95 MG/DL (0.60-1.10); GLUCOSE 212 MG/DL (70-104); MAGNESIUM 1.6 MG/DL (1.5-2.4); POTASSIUM 3.4 MMOL/L (3.5-5.1); SODIUM 137 MMOL/L (135-145); eGFR 35 ML/MIN
--- NOTE | 2019-07-02 10:37 | NUR ---
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 Daughter unsure if he has had and allergy to contrast given but thinks it may be both. Spoke with OR, they will medicate him there.
== END | disposition home or self-care (01) ==
LOC: SSTAY O 09:01
PROVIDERS: ATTEND Internal Medicine Cardiovascular Disease
DX: I42.8 Other cardiomyopathies (principal); I47.2 Ventricular tachycardia; I50.9 Heart failure, unspecified; R06.00 Dyspnea, unspecified; R07.9 Chest pain, unspecified; E11.22 Type 2 diabetes mellitus with diabetic chronic kidney disease; N18.9 Chronic kidney disease, unspecified; I25.10 Atherosclerotic heart disease of native coronary artery without angina pectoris; I44.7 Left bundle-branch block, unspecified; Z95.810 Presence of automatic (implantable) cardiac defibrillator; E11.51 Type 2 diabetes mellitus with diabetic peripheral angiopathy without gangrene; Z87.891 Personal history of nicotine dependence
CPT/HCPCS: 33225; 33264; 36415; 71045; 80048; 83735; 85025; 85610; 93005; C1769; C1895; C1900; J0690; J0780; J1200; J1720; J2250; J3010; J3370; J7030; Q9967; 33216; 33224; 33231; 99152; 99153; A4565

== ENCOUNTER 2019-09-08 12:26 | Emergency (ER) | payer MEDICARE, MEDICAID ==
[~2019-09-08] VITALS: Ht 180.3 cm; Wt 85.9 kg
[~2019-09-08 12:26] MED LIST changes: -ESCI20TA; -LACT1CAP65 PO; -LIDOcaine 1% W/epiNEPHrine 1:100,000 20ml vial ONE; -LINA5TAB4 PO; -LISI-604 PO; -LISI10TA4; -MAGN296S70 PO; -METF-436; -METF-436 PO; -METO-539 PO; -MULT-673 PO; -OMEP-50 PO; -OXYB5TAB16 PO; -POTA8CAP20 PO; -PRAV80TA3 PO; -ROPI4TAB3 PO; -SIMV-45; -TEMA15CA PO; -TRAZ-251 PO; -ceFAZolin 1000mg inj ONE; -diphenhydrAMINE 50 mg/ml inj ONE; -fentaNYL/PF 50MCG/1 ML 2ML syringe ONE; -hydrocortisone sod succ/PF 100mg/2ml inj. ONE; -iohexol 350MG/ML 100ml bottle IV ONE; -midazolam 2 mg/2 ml injection ONE; -normal saline 1,000 ML IV SCH; -normal saline 1000ml 1,000 ML IV SCH; -proCHLORperazine 10 MG/2 ml inj ONE; -vancomycin 1,000mg inj ONE
--- NOTE | 2019-09-08 13:23 | NUR ---
Clean heart monitor tracing unobtainable despite lead replacement/repositioning. Radial pulse 78 bpm and regular. Mildrinone pump infusing per home PICC.
--- NOTE | 2019-09-08 13:47 | NUR ---
Attempted to interrogate pacemaker without success. [facility] Dragan aware.
[2019-09-08 14:01] LABS: BASOPHILS % (AUTO) 0.5 % (0-1); EOSINOPHILS # (AUTO) 0.1 X10'3 (0-0.9); EOSINOPHILS % (AUTO) 1.2 % (0-6); HEMATOCRIT 31.1 % (42.0-52.0); HEMOGLOBIN 10.2 g/dl (14.0-17.9); LYMPHOCYTES # (AUTO) 0.5 X10'3 (1.1-4.8); LYMPHOCYTES % (AUTO) 5.9 % (21-51); MEAN CORPUSCULAR HEMOGLOBIN 27.3 PG (27.0-31.0); MEAN CORPUSCULAR HGB CONC 32.8 g/dL (33.0-36.5); MEAN CORPUSCULAR VOLUME 83.1 FL (78-98); MEAN PLATELET VOLUME 7.2 FL (7.4-10.4); MONOCYTES # (AUTO) 0.8 X10'3 (0-0.9); MONOCYTES % (AUTO) 8.8 % (2-12); NEUTROPHILS # (AUTO) 7.2 X10'3 (1.8-7.7); NEUTROPHILS % (AUTO) 83.6 % (42-75); PLATELET COUNT 389 X10'3 (140-440); RED BLOOD COUNT 3.74 X10'6 (4.70-6.10); RED CELL DISTRIBUTION WIDTH 19.3 % (11.5-14.5); WHITE BLOOD COUNT 8.6 X10'3 (4.5-11.0)
[2019-09-08 14:07] LABS: ALANINE AMINOTRANSFERASE 123 U/L (12-78); ALBUMIN 2.8 G/DL (3.4-5.0); ALBUMIN/GLOBULIN RATIO 0.5 (1.1-1.5); ALKALINE PHOSPHATASE 155 IU/L (46-116); ANION GAP 12 (8-16); ASPARTATE AMINO TRANSFERASE 70 U/L (10-37); BILIRUBIN,TOTAL 0.8 MG/DL (0.1-1.0); BLOOD UREA NITROGEN 61 MG/DL (7-18); BUN/CREATININE RATIO 20.3 (5.4-32.0); CALCIUM 8.5 MG/DL (8.5-10.1); CHLORIDE 99 MMOL/L (99-107); GLUCOSE 175 MG/DL (70-104); POTASSIUM 4.1 MMOL/L (3.5-5.1); SODIUM 133 MMOL/L (135-145); TOTAL CARBON DIOXIDE 21.6 MMOL/L (24-32); TOTAL PROTEIN 8.1 G/DL (6.4-8.2); eGFR 21 ML/MIN
[2019-09-08 14:50] LABS: LARGE PLATELETS FEW; PLATELET ESTIMATE NORMAL
[2019-09-08 14:51] LABS: POLYCHROMASIA FEW
[2019-09-08 14:52] LABS: ACANTHOCYTES FEW; ANISOCYTOSIS 2+; ELLIPTOCYTES 1+; HYPOCHROMASIA 1+; SCHISTOCYTES FEW; TARGET CELLS FEW
[2019-09-08] MEDS ORDERED: furosemide 10 MG/1 ML 10ml inj IV ONE (15:05)
[2019-09-08 15:41] VITALS: BP 112/64
--- NOTE | 2019-09-08 16:07 | NUR ---
Pacemaker interrogated successfully, [facility] Dragan aware. No adjustment required.
== END 2019-09-08 16:08 | disposition home or self-care (01) ==
LOC: ER 12:27
DX: I50.9 Heart failure, unspecified (principal); I13.0 Hypertensive heart and chronic kidney disease with heart failure and stage 1 through stage 4 chronic kidney disease, or unspecified chronic kidney disease; E11.22 Type 2 diabetes mellitus with diabetic chronic kidney disease; N18.9 Chronic kidney disease, unspecified; F32.9 Major depressive disorder, single episode, unspecified; Z85.038 Personal history of other malignant neoplasm of large intestine; Z90.49 Acquired absence of other specified parts of digestive tract; Z95.0 Presence of cardiac pacemaker; Z88.5 Allergy status to narcotic agent; Z88.8 Allergy status to other drugs, medicaments and biological substances; Z79.4 Long term (current) use of insulin; Z79.899 Other long term (current) drug therapy
CPT/HCPCS: 36415; 71045; 80053; 83880; 84484; 85025; 93005; 96374; 99285; J1940